=== PATIENT | female | born 1985 | race Caucasian/White ===

== ENCOUNTER 2022-10-25 05:59 | Emergency (ER) | payer OTHER, SELFPAY ==
[2022-10-25 06:02] VITALS: BP 133/88; PULSE 85; RESP 18; TEMP 36.5; O2SAT 100
--- NOTE | 2022-10-25 06:27 | ED.GENADULT ---
HPI - General Adult General Chief complaint: Headache <Salvador Martínez MD - Last Filed: 10/25/22 06:30> Stated complaint: SMALL after LP 2 days ago <Salvador Martínez MD - Last Filed: 10/25/22 06:30> Time Seen by Provider: 10/25/22 06:17 <Salvador Martínez MD - Last Filed: 10/25/22 06:30> History of Present Illness HPI narrative: Patient 37-year-old female who presents the emergency department with chief complaint of headache. Patient reports that she had a lumbar puncture done at [facility] by interventional radiology on Tuesday due to increased intracranial pressure. The patient reports that she is had an MRI that showed that she did not have any masses in her brain and reports that her intracranial pressure was approximately 28 on Tuesday. Patient states she was doing okay after the procedure and then Tuesday night started developing a headache the patient states the headache is gotten very severe she feels somewhat warm over her body and reports that she is had multiple bouts of nausea and vomiting. Patient reports she has prior history of a laminectomy and reports that she called the [facility] nurse line and they recommended that she come to the emergency department. Patient reports no focal neurological deficits denies fever denies nuchal rigidity. <Salvador Martínez MD - Last Filed: 10/25/22 06:30> Related Data Allergies/adverse reactions: Allergies Allergy/AdvReac Type Severity Reaction Status Date / Time Sulfa (Sulfonamide Allergy Mild Rash Verified 10/25/22 06:04 Antibiotics) <Salvador Martínez MD - Last Filed: 10/25/22 06:30> Review of Systems Review of Systems: A 10 system review of systems was completed on the patient and is negative except for what is stated in the HPI. Nursing and ancillary documentation was reviewed. <Salvador Martínez MD - Last Filed: 10/25/22 06:30> Exam Narrative: GENERAL: Well-appearing, well-nourished, patient is holding an emesis bag appears to be in mild pain distress. HEAD: Normocephalic, atraumatic. EYES: PERRLA and EOMI. ENT: Nares clear, no rhinorrhea or epistaxis. Mucous membranes moist. NECK: Supple. No nuchal rigidity CHEST: Clear to auscultation. No respiratory distress. HEART: Regular rate and rhythm. No murmur heard. Normal peripheral pulses. ABDOMEN: Soft, nontender, nondistended, normal active bowel sounds. EXTREMITIES: Normal range of motion. No edema. No weakness in extremities SKIN: Warm, dry, no rash. NEURO: No focal deficits. Alert and oriented x3. GCS 15 no facial droop PSYCH: Normal mood and affect. <Salvador Martínez MD - Last Filed: 10/25/22 06:30> Course Course Emergency Course: Headache resolved. Patient still having some body aches that can be attributed to vomiting. Recommend discharge home with supportive management. Patient comfortable with this plan. Discharge. <Arnie Newton MD - Last Filed: 10/25/22 09:47> Vital Signs Vital signs: Vital Signs Temperature 97.7 F 10/25/22 06:02 Pulse Rate 85 10/25/22 06:02 Respiratory Rate 18 10/25/22 06:02 Blood Pressure 133/88 10/25/22 06:02 Pulse Oximetry 100 10/25/22 06:02 Oxygen Delivery Room Air 10/25/22 06:02 Temperature 97.7 F 10/25/22 06:02 Pulse Rate 85 10/25/22 06:02 Respiratory Rate 18 10/25/22 06:02 Blood Pressure 133/88 10/25/22 06:02 Pulse Oximetry 100 10/25/22 06:02 Oxygen Delivery Room Air 10/25/22 06:02 <Salvador Martínez MD - Last Filed: 10/25/22 06:30> Vital Signs Temperature 97.7 F 10/25/22 06:02 Pulse Rate 85 10/25/22 06:02 Respiratory Rate 18 10/25/22 06:02 Blood Pressure 133/88 10/25/22 06:02 Pulse Oximetry 100 10/25/22 06:02 Oxygen Delivery Room Air 10/25/22 06:02 Temperature 97.7 F 10/25/22 06:02 Pulse Rate 85 10/25/22 06:02 Respiratory Rate 18 10/25/22 06:02 Blood
[2022-10-25] MEDS: PROCHLORPERAZINE EDISYLATE 10 MG/2 ML VIAL IV PUSH (06:30)
[2022-10-25] MEDS: diphenhydrAMINE HCl INJ 50 MG/ML VIAL IV PUSH (06:30)
[2022-10-25] MEDS: SODIUM CHLORIDE 0.9% IV 1,000 ML 999 ML IV CONT (06:31)
== END 2022-10-25 09:57 | disposition home or self-care (01) ==
PROVIDERS: Emergency Provider Emergency Medicine; PCP Family Medicine
DX: G97.1 Other reaction to spinal and lumbar puncture (principal)
CPT/HCPCS: 96361; 96374; 96375; 99284; J0780; J1200; J7030

== ENCOUNTER 2023-06-16 09:51 | Outpatient (CLI) | payer OTHER, SELFPAY ==
--- NOTE | ~2023-06-16 | US_ITS ---
EXAMINATION:US venous doppler LE LT INDICATION:Left leg pain TECHNIQUE: Multiple grayscale, color flow and Doppler images of the left lower extremity deep venous systems were obtained and reviewed. COMPARISON:No prior studies for comparison. FINDINGS: The common femoral, superficial femoral and popliteal veins demonstrate normal respiratory variation, augmentation and compressibility. Color flow is also seen within the posterior tibial, pe roneal, greater saphenous and profunda veins. IMPRESSION: 1: No lower extremity deep venous thrombosis. Reviewed, dictated and finalized at location L.
== END 2023-06-16 09:52 | disposition home or self-care (01) ==
LOC: ANHIMG 10:01
PROVIDERS: PCP Family Medicine; Visit Provider Family Medicine
DX: M79.605 Pain in left leg (principal)
CPT/HCPCS: 93971

== ENCOUNTER 2024-08-31 17:59 | Emergency (ER) | payer OTHER, MEDICAID, SELFPAY ==
--- NOTE | ~2024-08-31 | XR_ITS ---
XR chest 1V portable Ordering provider: Omar Atkins MD History: 39 years Female with . ASTHMA EXACERBATION . Comparison: None. FINDINGS: MEDIASTINUM: The cardiac silhouette is not enlarged. LUNGS: No infiltrates, effusions or pneumothorax. OTHER: No free air under the diaphragm. IMPRESSION: No acute cardiopulmonary pathology. Reviewed, dictated and finalized at location A. [facility]
[2024-08-31 18:02] VITALS: BP 129/84; PULSE 120; RESP 20; TEMP 35.9; O2SAT 99
--- NOTE | 2024-08-31 18:11 | ED.ASTHMA ---
HPI - Asthma General Chief Complaint: Asthma Stated Complaint: SOB Time Seen by Provider: 08/31/24 18:11 Source: patient Related Data Allergies Allergy/AdvReac Type Severity Reaction Status Date / Time Sulfa (Sulfonamide Allergy Mild Rash Verified 08/31/24 18:00 Antibiotics) Course Vital Signs Vital signs: Vital Signs Temperature 35.9 C L 08/31/24 18:02 Pulse Rate 120 H 08/31/24 18:02 Respiratory Rate 20 08/31/24 18:02 Blood Pressure 129/84 08/31/24 18:02 Pulse Oximetry 99 08/31/24 18:02 Oxygen Delivery Room Air 08/31/24 18:02 Temperature 35.9 C L 08/31/24 18:02 Pulse Rate 119 H 08/31/24 20:22 Respiratory Rate 23 H 08/31/24 20:22 Blood Pressure 129/84 08/31/24 18:02 Pulse Oximetry 100 08/31/24 19:20 Oxygen Delivery Room Air 08/31/24 19:20 MDM - Asthma MDM Narrative Medical decision making narrative: PATIENT CAME WITH UPPER RESPIRATORY VIRAL INFECTION SYMPTOMS HISTORY OF ASTHMA, PATIENT REPORTS INCREASED WHEEZING AND SHORTNESS OF BREATH ON ACTIVITY VITAL SIGNS SHOWING HEART RATE OF 120 PHYSICAL EXAMINATION SHOWING SCATTERED WHEEZING AND RHONCHI BILATERALLY CHEST X-RAY SHOWED NO ACUTE ABNORMALITY, PATIENT TESTED NEGATIVE FOR COVID, FLU, RSV. DISCHARGED ON PREDNISONE. DIAGNOSIS UPPER RESPIRATORY VIRAL INFECTION, ASTHMA EXACERBATION Differential Diagnosis Differential diagnosis: Likely other ( ABOVE) Medical Records Attestation: I reviewed the patient's medical records. Lab Data Labs: Lab Results 08/31/24 Range/Units 18:25 Influenza A (RT-PCR) Negative (Negative) Influenza B (RT-PCR) Negative (Negative) RSV (RT-PCR) Negative (Negative) SARS-CoV-2 RNA (RT-PCR) Negative (Negative) Imaging Data Radiologist's impression: Impressions Chest X-Ray 08/31/24 18:26 IMPRESSION: No acute cardiopulmonary pathology. Critical Care Time Critical Care Time Critical Care Time: No Discharge Plan Discharge Clinical Impression: Upper respiratory infection, viral, Asthma with acute exacerbation Patient Disposition: Home, Self-Care Condition: Improved Instructions: Asthma (ED), Upper Respiratory Infection (DC) Additional Instructions: RETURN IF SYMPTOMS ARE WORSENING , CALL YOUR FAMILY PHYSICIAN FOR APPOINTMENT, TAKE TYLENOL NEEDED FOR ACHES AND PAIN, CONTINUE HOME MEDICATIONS. Prescriptions: New prednisone 20 mg tablet 40 mg PO DAILY 5 Days Qty: 10 0RF No Action promethazine 25 mg tablet 25 mg PO Q6H PRN (Reason: nausea and vomiting) Qty: 10 0RF Follow-up/Referrals: Silva,Denzel Grubbs MD [Non-Staff] -
[2024-08-31] MEDS: predniSONE 20 MG TABLET 60 MG PO (18:58)
[2024-08-31] MEDS: ALBUTEROL SULFATE NEB 2.5 MG/3 ML INH 10 MG INHALATION (19:07)
[2024-08-31 19:14] VITALS: PULSE 89; RESP 21
[2024-08-31 19:19] LABS: Influenza A QL RT-PCR Negative (Negative); Influenza B QL RT-PCR Negative (Negative); RSV RNA, RT-PCR Negative (Negative); SARS-CoV-2 RNA PCR Negative (Negative)
[2024-08-31 19:20] VITALS: O2SAT 100
[2024-08-31 20:22] VITALS: PULSE 119; RESP 23
[2024-08-31 21:13] VITALS: BP 151/79; PULSE 102; RESP 14; O2SAT 100
== END 2024-08-31 21:15 | disposition home or self-care (01) ==
PROVIDERS: Emergency Provider Emergency Medicine
DX: J06.9 Acute upper respiratory infection, unspecified (principal); J45.901 Unspecified asthma with (acute) exacerbation; Z20.822 Contact with and (suspected) exposure to COVID-19
CPT/HCPCS: 71045; 87637; 94640; 99283; J7512

== ENCOUNTER 2025-02-27 13:48 | Emergency (ER) | payer OTHER, MEDICAID, SELFPAY ==
--- NOTE | ~2025-02-27 | XR_ITS ---
XR hand LT min 3V Ordering provider: Kenia Stevens APRN History: . L thumb pain . Comparison: None. FINDINGS: BONES: Sclerotic and cystic changes seen in the lunate bone suggestive of AVN. Clinical correlation a dvised. No acute fracture or dislocation. JOINT SPACES: Well maintained. SOFT TISSUES: Unremarkable. IMPRESSION: No acute osseous abnormality left hand. 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 Reviewed, dictated and finalized at location A.
--- NOTE | ~2025-02-27 | XR_ITS ---
CHEST RADIOGRAPH, PA AND LATERAL CLINICAL HISTORY: dizziness; hx asthma . COMPARISON: 05/17/2018 TECHNIQUE: PA and lateral views of the chest. FINDINGS The cardiomediastinal silhouette is unremarkable. The lungs are clear. Visualized osseous structures and soft tissues are unremarkable. IMPRESSION: No focal infiltrate or effusion. Reviewed, dictated and finalized at location A.
--- OUTSIDE RECORDS SUMMARY | 2025-02-27 13:53 | XMS_ITS | Referral Summary ---
Author Organization [facility] Address [address] [place] [address] Care Team Providers Care Oncology Social Worker Name Role Phone Denzel Ascencio MD Primary Care Provider [phone] Allergies Active Allergy Reactions Criticality Noted Date Comments Sulfa (Sulfonamide Antibiotics) Medications topiramate (TOPAMAX) 25 mg tablet Take 25 mg by mouth 2 (two) times a day 10/29/2022 Active rizatriptan (MAXALT) 5 mg tablet Take 1 tab by mouth once at first sign of migraine. May repeat one time after 2 hours if needed. 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), 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 Recurrent major depressive disorder, in partial remission 07/04/2022 PTSD (post-traumatic stress disorder) 07/04/2022 Social History Tobacco Use Types Packs/Day Years Used Date Smoking Tobacco: Former Tobacco Cessation:Counseling Given: Not Answered Personal Safety Answer Date Recorded Getting School Help Needed Not on file 09/14 Comments Unknown Sex and Gender Information Value Date Recorded Sex Assigned at Not on file 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 FOR[facility]LY [facility] Care Teams Oncology Social Worker Relationship Specialty Start Date End Date Denzel Ascencio MD [facility] [place] [address] PCP - General 12/02/17
--- OUTSIDE RECORDS SUMMARY | 2025-02-27 13:54 | XMS_ITS | Data Portability ---
Author Organization [facility] [place], Main Office Address [address] [place] [address] Assessment No assessment recorded. Plan of Treatment Reminders Order Date Submit Date Provider Last Modified By Organization Details Last Modified Time Details Appointments Any 15 2024 10:00A M QUEENIE Hooper Not available Not available Not available Lab drug screen, 14 drugs (detectim ed), urine [email or web address] (Lab), [address] [place], [address], 10/02/2024 08:30:51 test, urine 2023 024 [facility], [address] [place] [address], [id number], 09/24/2024 15:05:31 Referral None recorded. Procedures None recorded. Surgeries None recorded. Imaging None recorded. Medication Orders Depo-Medr ol 80 mg/mL suspensio n for injection [email or web address] [facility], [address] , [place], [place], [id number], 12/11/2024 15:58:04 metoprolo l succinate ER 25 mg tablet,ex tended release 24 hr 2024 025 [facility], [address] , [place], [place], [id number], 12/11/2024 15:40:29 dextroamp hetamine- amphetami ne ER 30 mg 24hr capsule,e xtend release 2024 025 [facility], [address] , [place], [place], [id number], 12/11/2024 15:37:02 Depo-Medr ol 80 mg/mL suspensio n for injection 2023 024 [email or web address] Not available 09/24/2024 15:04:46 Slynd 4 mg (28) tablet 2023 024 [email or web address], [address] , [place], [place], [id number], 09/24/2024 14:59:37 dextroamp hetamine- amphetami ne ER 20 mg 24hr capsule,e xtend release 2023 [email or web address] [place] [address], [address] , [place], [place], [id number], 01/15/2025 16:51:42 dextroamp hetamine- amphetami ne 10 mg tablet 2023 024 [email or web address], [address] , [place], [place], [id number], 09/24/2024 14:59:37 Depo-Medr ol 80 mg/mL suspensio n for injection 2023 024 [email or web address] Not available 06/27/2024 10:09:00 alprazola m 0.5 mg tablet 2023 024 [facility], [address] , [place], [place], [id number], 06/27/2024 10:01:12 Depo-Medr ol 80 mg/mL suspensio n for injection 2023 024 [email or web address] 00 Not available 03/26/2024 16:35:19 albuterol sulfate HFA 90 mcg/actua tion aerosol inhaler 2023 024 [facility], [address] , [place], [place], [id number], 03/26/2024 15:25:19 alprazola m 0.5 mg tablet 2023 024 [facility], [address] , [place], [place], [id number], 03/26/2024 15:25:20 Adderall XR 20 mg capsule,e xtended release 2023 024 [email or web address] 00 [facility], [address] , [place], [place], [id number], 01/15/2025 16:51:42 Depo-Medr ol 80 mg/mL suspensio n for injection 2023 024 [email or web address] Not available 12/14/2023 14:55:46 Vyvanse 50 mg capsule 2023 024 [email or web address] 00 [facility] #[id number], [address] [place], [address], 03/26/2024 15:35:07 Patient TargetsNo targets recorded. Patient Instructions Encounter Date Encounter Id Patient Instructions Last Modified By Organization Details Last Modified Time 06/27/2024 [id number] advised You Tube : [facility] [place] for sleep .... is already on melatonin ,and Ashwaganda . get Braden [employer] , write out thoughts , has a therapist. Dad's cancer worse , new baby . Get book Finding Your strength .... open anywhere , read a sentence or two [email or web address] Not available 06/27/2024 10:22:22 Reason for Referral None Reported. Results Created Date Observation Date Name Description Value Unit Range Abnormal Flag Note LastModifiedBy Organization Detail LastModifiedTime 09/24/20 24 09/24/2024 pregn brandi test, urine HCG negati ve Not Available [facility] [address] [facility], [place], [address], 09/24/2024 14:58:36 06/12/20 24 06/12/2024 XR, chest , 2 view No observ ation record ed. [email or web address] [facility] [address] [place], [address], 06/13/2024 08:35:44 08/31/20 24 08/31/2024 XR, chest , 2 view No observ ation record ed. [email or web address] [address], [place], [address], 10/01/2024 16:51:57 Result Notes None recorded. Problems Name Problem SNOMED Code Status Onset Date Resolution Date Notes Provider Name and Address Organization Details Recorded Time Migraine 59030499 Active 2022 Not Available [facility] 4 18:39:15 COVID-19 791083517 Active 2022 Not Available [facility] 4 18:39:15 Pain in left lower limb 867605458 Active 2022 Not Available [facility] 4 18:39:15 Mixed anxiety and depressive disorder 840808242 Active 2022 Not Available [facility] 4 18:39:14 Attention deficit hyperactivity disorder, predominantly inattentive type 75111284 Active 2022 Not Available [facility] 4 18:39:15 Seasonal allergy 775966365 Active 2023 Sangita Lyons RN [facility], [employer] [facility] 4 16:16:26 Adult health examination Active 2023 QUEENIE Hooper [address] [facility] [address], [place], [address] , [facility] [employer] 4 09:52:50 Acne 18702340 Active Not Available [facility] 4 18:39:14 Acute sinusitis 81899439 Active Not Available [facility] 4 18:39:14 Asthma 145993717 Active Not Available [facility] 4 18:39:14 Excessive weight gain 409877252 Active Not Available [facility] 4 18:39:14 Undifferentia corrina attention deficit disorder 77603264 Active Not Available [facility] 4 18:39:14 Seasonal allergic conjunctiviti s 465963017 Active Not Available [facility] 4 18:39:14 Headache 41286472 Active Not Available [facility] 4 18:39:14 Low back pain 781119736 Active Not Available [facility] 4 18:39:14 Eruption caused by drug 90796139 Active Not Available [facility] 4 18:39:15 Pain in pelvis 13671331 Active Not Available [facility] 4 18:39:15 Vaginitis 78894575 Active Not Available [facility] 4 18:39:15 Vitamin D deficiency 59553210 Active Not Available [facility] 4 18:39:15 Depressive disorder 94612993 Active Not Available [facility] 4 18:39:15 Environmental allergy 735936103 Active Not Available [facility] 4 18:39:15 Anxiety 53376290 Active Not Available [facility] 4 18:39:15 Allergic rhinitis 92090889 Active Not Available [facility] 4 18:39:15 Dyspareunia 18756767 Active Not Available [facility] 4 18:39:15 Cyst of ovary 35206600 Active Not Available [facility] 4 18:39:15 Contraception care Active 2023 QUEENIE Hooper [address], [place], [address] , [place] [facility] 4 14:51:04 Tachycardia 0721789 Active 2024 QUEENIE Hooper [address], [place], [address] , [place] [facility] 5 15:38:52 Notes:Some problems listed i n Documents: #[id number], #[id number], #[id number], #[id number] could not be added to this patient's chart. Please review these documents and add these problems to the patient's chart manually as needed. Problem Notes None recorded. Medical Equipment None Reported. Allergies Allergen ID Allergen Name Allergen Category Reaction Reaction Severity Criticality Documentation Date Start Date Code Code System Note Provider Name and Address Organization Details Recorded Time 6293 Substance with sulfonami de structure and antibacte rial mechanism of action (substanc e) medicatio n Not available Not available Not available 12/01/2022 20877 8003 SNOMED Not Available [facility] 3 03:35:24 Medications Name Sig Start Date Stop Date Status Note LastModified by Organization Details LastModified Time cyclobenz aprine 10 mg tablet TAKE 1 TABLET BY MOUTH THREE TIMES A DAY 12/13 completed Not Available Not Available Not Available amoxicill in 500 mg capsule 12/14 completed Not Available Not Available Not Available fluconazo le 100 mg tablet TAKE 1 TABLET BY MOUTH EVERY DAY FOR 14 DAYS active Not Available Not Available No t Available methocarb charlie 500 mg tablet TAKE 1-2 TABLETS BY MOUTH 4 TIMES A DAY NEEDED active Not Available Not Available No t Available Qvar 80 mcg/actua tion Metered Aerosol oral inhaler Inhale 2 puffs twice a day by inhalati on route. active Not Available Not Available No t Available prednison e 10 mg tablet 4 tabs daily x 3 days 3tabs daily x 3 days 2 tabs daily x 3 days 2 tabs daily x 3 days 1 tab daily x 3 days and then d/c active Not Available Not Available No t Available albuterol sulfate 2.5 mg/3 mL (0.083 %) solution for nebulizat ion INHALE 1 VIAL VIA NEBULIZE R 4 TIMES A DAY active Not Available Not Available No t Available azithromy caitlyn 250 mg tablet TAKE 2 TABLETS BY MOUTH TODAY, THEN TAKE 1 TABLET DAILY FOR 4 DAYS 10/05 completed Not Available Not Available Not Available diltiazem CD 180 mg capsule,e xtended release 24 hr TAKE 1 CAPSULE BY MOUTH EVERY DAY 06/27 completed Not Available Not Available Not Available fluconazo le 150 mg tablet Take 1 tablet every day by oral route. 11/02 completed Not Available Not Available Not Available sumatript an 100 mg tablet TAKE MEDICATI ON AT THE ONSET OF MIGRAINE , MAY REPEAT IN 2 HOURS active Not Available Not Available No t Available hydrocodo ne 5 mg-acetam inophen 325 mg tablet TAKE 1 TABLET BY MOUTH EVERY 6 HOURS NEEDED FOR PAIN 02/28 completed Not Available Not Available Not Available ondansetr on HCl 8 mg tablet TAKE 1 TABLET BY MOUTH EVERY 8 HOURS NEEDED 12/13 completed Not Available Not Available Not Available minocycli ne 100 mg capsule TAKE 1 CAPSULE BY MOUTH EVERY 12 HOURS 12/13 completed Not Available Not Available Not Available metronida zole 0.75 % (37.5 mg/5 gram) vaginal gel INSERT 1 APPLICAT ORFUL VAGINALL Y AT BEDTIME FOR 5 DAYS 10/05 completed Not Available Not Available Not Available ondansetr on HCl 4 mg tablet TAKE 1 TO 2 TABLETS BY MOUTH EVERY DAY 10/22 completed Not Available Not Available Not Available prednison e 20 mg tablet TAKE 2 TABLETS ORAL ROUTE ONCE DAILY FOR 5 DAYS TAKE WITH FOOD 09/24 completed Not Available Not Available Not Available dextroamp hetamine- amphetami ne 10 mg tablet 1 tab po at 3 pm as needed 2024 active Not Available Not Available Not Avai lable prednison e 5 mg tablet active Not Available Not Available Not Available topiramat e 25 mg tablet TAKE 1 (ONE) TABLET BY MOUTH 2 TIMES DAILY active Not Available Not Available No t Available fexofenad ine 180 mg tablet TAKE 1 TABLET BY MOUTH EVERY DAY active Not Available Not Available No t Available ciproflox acin 500 mg tablet TAKE 1 TABLET BY MOUTH EVERY 12 HOURS FOR 5 DAYS 12/11 completed Not Available Not Available Not Available Tamiflu 75 mg capsule TAKE ONE CAPSULE BY MOUTH TWICE A DAY active Not Available Not Available No t Available sulfameth oxazole 800 mg-trimet hoprim 160 mg tablet active Not Available Not Available Not Available tramadol 50 mg tablet TAKE 1 TO 2 TABLETS BY MOUTH EVERY 6 HOURS NEEDED FOR PAIN 12/13 completed Not Available Not Available Not Available amoxicill in 500 mg tablet TAKE 1 TABLET BY MOUTH EVERY 6 HOURS. 02/09 /2022 completed Not Available Not Available Not Available Depo-Medr ol 80 mg/mL suspensio n for injection Take 1 mL every day by injectio n route for 1 day. 2024 active Not Available Not Available Not Avai lable ketorolac 10 mg tablet TAKE 1 TABLET BY MOUTH 4 TIMES A DAY NEEDED FOR PAIN 12/13 completed Not Available Not Available Not Available oxycodone -acetamin ophen 5 mg-325 mg tablet active Not Available Not Available Not Available alprazola m 0.5 mg tablet TAKE 1 TABLET BY MOUTH TWO TIMES A DAY as needed active Not Available Not Available No t Available amoxicill in 875 mg tablet TAKE 1 TABLET BY MOUTH TWICE A DAY FOR 10 DAYS, THEN ONCE DAILY THEREAFT ER 12/13 completed Not Available Not Available Not Available famotidin e 20 mg tablet TAKE 1 TABLET BY MOUTH EVERY DAY 01/05 completed Not Available Not Available Not Available dextroamp hetamine- amphetami ne ER 20 mg 24hr capsule,e xtend release Take 1 Capsule (20 mg) by mouth daily 01/15 completed increase d to 30 mg ER Not Available Not Available Not Available baclofen 10 mg tablet TAKE 1/2 (HALF) TABLET BY MOUTH WITH FOOD OR MILK TWICE DAILY 10/05 completed Not Available Not Available Not Available benzonata te 100 mg capsule 06/27 completed Not Available Not Available Not Available dexametha sone 4 mg tablet active Not Available Not Available Not Available prednison e 50 mg tablet TAKE 1 TABLET WITH FOOD ONCE DAILY FOR 5 DAYS NEEDED FOR ASTHMA EXACERBA TION ( NOT ENROLLED ) 02/25 completed Not Available Not Available Not Available promethaz ine 25 mg tablet TAKE 1 TABLET BY MOUTH EVERY 6 HOURS NEEDED FOR NAUSEA AND VOMITING 12/13 completed Not Available Not Available Not Available Advair Diskus 250 mcg-50 mcg/dose powder for inhalatio n INHALE 1 PUFF BY MOUTH TWICE A DAY active Not Available Not Available No t Available Advair Diskus 500 mcg-50 mcg/dose powder for inhalatio n INHALE 1 PUFF TWICE A DAY BY INHALATI ON ROUTE. active Not Available Not Available No t Available docusate sodium 100 mg capsule TAKE 1 CAPSULE BY MOUTH TWICE A DAY 12/11 completed Not Available Not Available Not Available gabapenti n 300 mg capsule TAKE 1 CAPSULE BY MOUTH THREE TIMES A DAY 12/13 completed Not Available Not Available Not Available monteluka st 10 mg tablet TAKE 1 TABLET BY MOUTH EVERY DAY active Not Available Not Available No t Available codeine 10 mg-guaife nesin 100 mg/5 mL oral liquid TAKE 10ML BY MOUTH EVERY 6 HOURS NEEDED FOR COUGH 10/05 completed Not Available Not Available Not Available mupirocin 2 % topical ointment APPLY A SMALL AMOUNT TO THE AFFECTED AREA BY TOPICAL ROUTE 3 TIMES PER DAY 12/13 completed Not Available Not Available Not Available digoxin 125 mcg (0.125 mg) tablet TAKE 1 TABLET BY MOUTH ONCE A DAY FOR 5 DAYS, M-F 06/27 completed Not Available Not Available Not Available metoprolo l succinate ER 25 mg tablet,ex tended release 24 hr Take 1 tablet every day by oral route in the morning. 2024 active Not Available Not Available Not Avai lable ergocalci ferol (vitamin D2) 1,250 mcg (50,000 unit) capsule TAKE 2 CAPSULE( S) EVERY WEEK BY ORAL ROUTE FOR 1 MONTH THAN 1 CAP THEREAFT ER WEEKLY active Not Available Not Available No t Available ibuprofen 600 mg tablet TAKE 1 TABLET ORAL ROUTE EVERY 6 HOURS NEEDED TAKE WITH FOOD active Not Available Not Available No t Available methylpre dnisolone 4 mg tablets in a dose pack TAKE 6 TABLETS ON DAY 1 DIRECTED ON PACKAGE AND DECREASE BY 1 TAB EACH DAY FOR A TOTAL OF 6 DAYS 12/11 completed Not Available Not Available Not Available albuterol sulfate HFA 90 mcg/actua tion aerosol inhaler 2 puffs 3 times daily as needed active Not Available Not Available No t Available diltiazem 30 mg tablet TAKE 1/2 TABLET BY MOUTH TWICE DAILY 09/09 completed Not Available Not Available Not Available dextroamp hetamine- amphetami ne ER 30 mg 24hr capsule,e xtend release TAKE 1 CAPSULE BY MOUTH EVERY DAY 2024 active Not Available Not Available Not Avai lable ondansetr on 4 mg disintegr ating tablet active Not Available Not Available Not Available diltiazem 60 mg tablet TAKE 1 TABLET BY MOUTH TWICE A DAY 09/09 completed Not Available Not Available Not Available fluticaso ne propionat e 50 mcg/actua tion nasal spray,trinity pension SPRAY 2 SPRAYS INTO EACH NOSTRIL EVERY DAY active Not Available Not Available No t Available sertralin e 50 mg tablet TAKE 1 TABLET BY MOUTH EVERY DAY 11/11 completed Not Available Not Available Not Available ipratropi um bromide 0.02 % solution for inhalatio n INHALE CONTENTS OF 1 VIAL VIA NEBULIZE R EVERY 6 HOURS NEEDED FOR SHORTNES S OF BREATH active Not Available Not Available No t Available amoxicill in 875 mg-potass ium clavulana te 125 mg tablet TAKE 1 TABLET BY MOUTH EVERY 12 HOURS FOR 10 DAYS 10/26 completed Not Available Not Available Not Available rizatript an 5 mg tablet TAKE 1 TAB BY MOUTH ONCE AT FIRST SIGN OF MIGRAINE . MAY REPEAT ONE TIME AFTER 2 HOURS IF NEEDED. 03/26 completed Not Available Not Available Not Available hydroxyzi ne pamoate 25 mg capsule TAKE 1 CAPSULE BY MOUTH EVERY DAY 03/26 completed Not Available Not Available Not Available NuvaRing 0.12 mg-0.015 mg/24 hr vaginal Insert 1 vaginal ring every month by vaginal route. active Not Available Not Available No t Available azithromy caitlyn 500 mg tablet TAKE 2 TABLETS BY MOUTH AT ONE TIME NOW 10/05 completed Not Available Not Available Not Available metaxalon e 800 mg tablet active Not Available Not Available Not Available atomoxeti ne 40 mg capsule TAKE 1 CAPSULE BY MOUTH EVERY DAY 04/08 completed Not Available Not Available Not Available cyclobenz aprine 5 mg tablet 11/02 completed Not Available Not Available Not Available () 1.5 mg-30 mcg tablet Take 1 tablet every day by oral route. active Not Available Not Available No t Available bupropion HCl XL 300 mg 24 hr tablet, extended release TAKE 1 TABLET (300 MG TOTAL) BY MOUTH EVERY MORNING. 07/22 completed Not Available Not Available Not Available bupropion HCl XL 150 mg 24 hr tablet, extended release TAKE 1 TABLET BY MOUTH EVERY DAY 12/13 completed stopped in Sep 24 Not Available Not Available Not Available 10/22 (28) 1 mg-20 mcg (21)/75 mg (7) tablet TAKE 1 TABLET BY MOUTH EVERY DAY active Not Available Not Available No t Available () 1.5 mg-30 mcg (21)/75 mg (7) tablet TAKE 1 TABLET BY MOUTH DAILY 12/11 completed Not Available Not Available Not Available chlorhexi dine gluconate 0.12 % mouthwash 12/13 completed Not Available Not Available Not Available biotin 2013 active Not Available Not Available Not Avai lable multivita min 2013 active Not Available Not Available Not Avai lable Zegerid 2013 active Not Available Not Available Not Avai lable aripipraz ole 2 mg tablet TAKE 1 TABLET BY MOUTH EVERY DAY active Not Available Not Available No t Available Symbicort 160 mcg-4.5 mcg/actua tion HFA aerosol inhaler Inhale 2 puffs twice a day by inhalati on route. 2014 active [facility][id number] Not Available Not Available Not Available Vyvanse 50 mg capsule TAKE 1 CAPSULE BY MOUTH EVERY DAY IN THE MORNING 03/26 completed not covered , switched to adderall 20 mg Not Available Not Available Not Available Vyvanse 40 mg capsule TAKE 1 CAPSULE BY MOUTH EVERY DAY 12/13 completed Not Available Not Available Not Available Dulera 200 mcg-5 mcg/actua tion HFA aerosol inhaler Inhale 2 puffs twice a day by inhalati on route. active Not Available Not Available No t Available Lo Loestrin Fe 1 mg-10 mcg (24)/10 mcg (2) tablet Take 1 tablet every day by oral route for 30 days. active Not Available Not Available No t Available Asmanex HFA 200 mcg/actua tion aerosol inhaler Inhale 2 puffs twice a day by inhalati on route. active Not Available Not Available No t Available Breo Ellipta 200 mcg-25 mcg/dose powder for inhalatio n INHALE 1 PUFF BY MOUTH EVERY DAY 10/22 completed Not Available Not Available Not Available Qvar RediHaler 80 mcg/actua tion HFA breath activated aerosol Inhale 2 puffs twice a day by inhalati on route. active Not Available Not Available No t Available Slynd 4 mg (28) tablet Take 1 tablet every day by oral route for 30 days. active Not Available Not Available No t Available Lagevrio 200 mg capsule (EUA) active Not Available Not Available Not Available Vitals Date Recorded Body height Body mass index (BMI) Body weight Body temperature Heart rate Respiratory rate Oxygen saturation Oxygen saturation in Arterial blood by Pulse oximetry Systolic blood pressure Diastolic blood pressure Provider Name and Address Organization Details Last Updated DateTime 5 157.48 cm 36.4 kg/m2 22036.8 8 g 97.8 [degF] 122 /min 15.98 /min 98 % 98 % 112 mm[Hg] 64 mm[Hg] PAULINA Tai [facility] [employer] [facility] 5 15:23:22 Date Recorded Body height Body mass index (BMI) Body weight Body temperature Heart rate Oxygen saturation Oxygen saturation in Arterial blood by Pulse oximetry Respiratory rate Systolic blood pressure Diastolic blood pressure Provider Name and Address Organization Details Last Updated DateTime 4 157.48 cm 35.3 kg/m2 58218.3 3 g 98.5 [degF] 120 /min 99 % 99 % 16 /min 110 mm[Hg] 74 mm[Hg] Jami Reed RN [facility] [employer] [facility] 4 14:07:56 Date Recorded Body height Body mass index (BMI) Body weight Body temperature Heart rate Oxygen saturation Oxygen saturation in Arterial blood by Pulse oximetry Respiratory rate Systolic blood pressure Diastolic blood pressure Provider Name and Address Organization Details Last Updated DateTime 4 157.48 cm 35.5 kg/m2 93839.9 2 g 97.9 [degF] 112 /min 99 % 99 % 16 /min 140 mm[Hg] 90 mm[Hg] PAULINA Hartmann [facility] [employer] [facility] 4 15:14:25 Date Recorded Body height Body mass index (BMI) Body weight Body temperature Heart rate Respiratory rate Oxygen saturation Oxygen saturation in Arterial blood by Pulse oximetry Systolic blood pressure Diastolic blood pressure Provider Name and Address Organization Details Last Updated DateTime 4 157.48 cm 36 kg/m2 36427.7 g 98.3 [degF] 125 /min 16 /min 99 % 99 % 120 mm[Hg] 82 mm[Hg] PAULINA Hartmann [facility] [employer] [facility] 4 09:38:27 Date Recorded Body height Body mass index (BMI) Body weight Body temperature Heart rate Oxygen saturation Oxygen saturation in Arterial blood by Pulse oximetry Systolic blood pressure Diastolic blood pressure Provider Name and Address Organization Details Last Updated DateTime 4 157.48 cm 36.8 kg/m2 29309.0 7 g 98.1 [degF] 110 /min 100 % 100 % 130 mm[Hg] 90 mm[Hg] Sangita Lyons RN [place] [facility] 4 14:28:37 Social History Question Answer Notes LastModified by [employer] Details LastModified Time Tobacco Smoking Status Former Smoker Not Available [facility] 12/01/2022 02:56:55 In The 14 Days Before Symptom Onset, Have You Had Close Contact With A Laboratory-confirm ed COVID-19 While That Case Was Ill? No [id number] Information not available 12/01/2022 In The 14 Days Before Symptom Onset, Have You Had Close Contact With A Person Who Is Under Investigation For COVID-19 While That Person Was Ill? No [id number] Information not available 12/01/2022 At What Age Did You Start Smoking Tobacco? 17 [id number] Information not available 12/01/2022 How Much Tobacco Do You Smoke? 0.5 PPD [id number] Information not available 12/01/2022 How Many Years Have You Smoked Tobacco? 10 [id number] Information not available 12/01/2022 Sex: Unknown Functional Status Question Answer Note LastModified by [employer] Details LastModified Time What is your level of alcohol consumption? Occasional [id number] Information not available 12/01/2022 Mental Status None recorded. Family History Relationship Description Onset Age of this Age Resolved Age Notes LastModified by Organization Details LastModified Time Paternal Aunt Family history of malignant neoplasm Not available 12/11 15:13:54 Paternal Aunt Hereditary factor V deficiency disease [email or web address] Not available 12/11 15:13:54 Mother Cyst of ovary [email or web address] Not available 12/11 15:13:54 Maternal Grandmother Heart disease [id number] Not available 12/01/2022 03:18:53 Father Family history of malignant neoplasm [email or web address] Not available 12/11 15:13:54 Father Degeneration of intervertebr al disc [email or web address] Not available 12/11 15:13:54 Father Chronic obstructive pulmonary disease [email or web address] Not available 12/11 15:13:54 Paternal Grandmother Asthma [email or web address] [id number] Not available 12/01/2022 03:18:53 Paternal Grandfather Hereditary factor V deficiency disease [email or web address] Not available 12/11 15:13:54 Medical History No medical history recorded. Gynecological HistoryNo gynecological history recorded. Obstetrics History GPAL:G 0 P 0 0 0 0 Immunizations Vaccine Type Date Status Note Provider Nam e and Address Organization Details Recorded Time SARS-COV-2 (COVID-19) vaccine, UNSPECIFIED 3 completed Not [facility] 18:39:15 Past Encounters Encounter ID Performer Location Encounter Start Date Encounter Closed Date Diagnosis/Indication Diagnosis SNOMED-CT Code Diagnosis ICD10 Code Diagnosis Note [id number] Denzel Ascencio MD [facility] Augusto alvarez [facility] [place] [address] [address] 01/14/2021 00:00:00 01/14/2021 21:33:33 [id number] Denzel Ascencio MD [facility] Augusto alvarez [facility] [place] [address] [address] 02/25/2021 00:00:00 02/26/2021 05:27:22 [id number] Denzel Ascencio MD [facility] Augusto alvarez [facility] [place] [address] [address] 04/08/2021 00:00:00 04/08/2021 22:02:40 [id number] Denzel Ascencio MD [facility] Augusto alvarez [facility] [place] [address] [address] 09/09/2021 00:00:00 09/09/2021 20:39:39 [id number] Denzel Ascencio MD [facility] Augusto alvarez [facility] [place] [address] [address] 11/11/2021 00:00:00 11/11/2021 19:14:00 [id number] Denzel Ascencio MD [facility] Augusto alvarez [address] [place] [address] [place] [address] 12/14/2021 00:00:00 12/14/2021 20:55:03 [id number] Denzel Ascencio MD [facility] Augusto alvarez [address] [place] [address] [place] [address] 02/23/2022 00:00:00 02/24/2022 08:28:41 [id number] Denzel Ascencio MD [facility] Augusto alvarez [address] [place] [address] [place] [address] 03/25/2022 00:00:00 03/25/2022 22:05:46 [id number] Denzel Ascencio MD [facility] Augusto alvarez [address] [place] [address] [place] [address] 04/08/2022 00:00:00 04/08/2022 18:59:25 [id number] Denzel Ascencio MD [facility] Augusto alvarez [address] [place] [address] [place] [address] 12/13/2022 14:34:09 12/13/2022 15:28:52 Allergic rhinitis 81261124 J30.9 Asthma 207410376 J45.90 9 Acne 61971792 L70.9 Migraine 42419925 G43.90 9 Continue topiramate . 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.0 [id number] Denzel Ascencio MD [facility] [place] [address] [facility] [place] [address] 09/28/2023 10:52:35 10/17/2023 11:12:32 Allergic rhinitis 31999790 J30.9 [id number] Denzel Ascencio MD [facility] [place] [address] [facility] [place] [address] 12/14/2023 13:55:18 12/14/2023 14:50:40 Attention deficit hyperactivity disorder, predominantly inattentive type 68904530 F90.0 Allergic rhinitis 742817 04 J30.9 Asthma 699120107 J45.90 9 Anxiety 36869875 F41.9 Depressive disorder 3548 9007 F32.9 Environmental allergy 42 7405223 T78.49XD Vitamin D deficiency 347 86464 E55.9 [id number] Oleg Dumont MD [facility] [place] [address] [facility] [place] [address] 03/26/2024 15:07:48 03/26/2024 15:34:33 Asthma 459264207 J45.909 Anxiety 70600279 F41.9 Attention deficit hyperactivity disorder, predominantly inattentive type 79933904 F90.0 Seasonal allergy 9367753 04 J30.2 Allergic rhinitis 238874 04 J30.9 Depressive disorder 3548 9007 F32.9 Low back pain 930649607 M54.50 Migraine 16852401 G43.90 9 Vitamin D deficiency 347 11793 E55.9 [id number] Oleg Dumont MD [facility] [place] [address] [facility] [place] [address] 06/27/2024 09:28:34 06/27/2024 10:38:22 Adult health examination 328705012 Z00.00 Allergic rhinitis 440033 04 J30.9 Anxiety 25745162 F41.9 Attention deficit hyperactivity disorder, predominantly inattentive type 95326009 F90.0 Depressive disorder 3548 9007 F32.9 Environmental allergy 42 7713178 T78.49XD Mixed anxi ety and depressive disorder 358012447 F41.8 Vitamin D deficiency 347 20568 E55.9 Asthma 775870320 J45.90 9 Low back pain 620179181 M54.50 [id number] Oleg Dumont MD [address] [address] 09/24/2024 14:15:16 09/24/2024 15:45:11 Attention deficit hyperactivity disorder, predominantly inattentive type 81799887 F90.0 [facility] [address] 5005 Z30.40 Allergic rhinitis 012178 04 J30.9 Long-term drug therapy 063936599 Z79.891 Anxiety 98992770 F41.9 Depressive disorder 3548 9007 F32.9 Vitamin D deficiency 347 07617 E55.9 [id number] Oleg Dumont MD [address] [address] 12/11/2024 15:11:52 12/25/2024 08:16:08 Allergic rhinitis 81107557 J30.9 Attention deficit hyperactivity disorder, predominantly inattentive type 04179655 F90.0 Tachycardia 5144042 R00. 0 Health Concerns Section Related Observation LastModified by Organization Detai ls LastModified Time None Recorded Concern Status LastModified by Organization Details LastModified Time None Recorded Advance Directives Directive None Recorded Payers Encounter Date Sequence Insurance Name Policy Number Policy Espinoza Covered Member ID Espinoza Member ID Guarantor Name 12/14/2023 1 [facility] ON OR AFTER 04/02/21 (MEDICAID REPLACEMENT - HMO) Qiana Bower [id number] Qiana Bower 03/26/2024 1 [facility] (O) Qiana Bower [id number] Qiana Bower 06/27/2024 1 [facility] Qiana Shepherd Boccaleoni [id number] Qiana Shepherd Boccaleoni 09/24/2024 1 [facility]) Qiana Shepherd Boccaleoni [id number] Qiana Shepherd Boccaleoni 12/11/2024 1 [facility]) Qiana Shepherd Boccaleoni [id number] Qiana Shepherd Boccaleoni Notes Date Note Type Note Provider Name and Address Organization Details Recorded Time 12/14/2023 text/html allergies have flared , trees pollenating QUEENIE Hooper [address], [place], [address], [employer] 12/24/2023 11:29:37 03/26/2024 text/html allergies acting up , wants a depomedrol shot QUEENIE Hooper [address], [place], [address], [employer] 03/27/2024 10:19:20 06/27/2024 text/html sneezing , itchy , watery eyes . wants a shot QUEENIE Hooper [address], [place], [address], [employer] 07/14/2024 10:24:35 09/24/2024 text/html no changes QUEENIE Hooper [address], [place], [address], [employer] 10/07/2024 16:06:40 12/11/2024 text/html allergies acting up QUEENIE Hooper [address], [place], [address], [employer] 12/22/2024 10:15:31 OBGyn Episode No OBEpisode recorded.
--- OUTSIDE RECORDS SUMMARY | 2025-02-27 13:54 | XMS_ITS | Continuity of Care Document ---
Author Organization [facility] Address [address] [place] [address] Phone Care Team Providers Care Hadoop Analyst Name Role Phone Thanh Cote MD Unavailable Unavailable Advance Directives Directive Yes / No Effective Date File Name No Information Encounters Encounter Description Practice Location Reason(s) For Visit Diagnoses Date Provider Providers Copied on Encounter [facility], [address], [place], [place], [address], tel:[phone] [facility] No Information Kera Law. [address], [place], [place], [address], [place]. tel:[phone] Referring Provider: [address], [place], [address]. tel:[phone] Family History Family Member Type Diagnosis Age At Onset No Information Payers Payer name Insurance type Covered republican ID Authoriza tieladio(s) GINGER ZIEGLER [id number] Social History Type Description Quantity Date Captured Comments Sex Female Smoking Status No Information Chief Complaint And Reason For Visit No Information Reason For Referral Reason For Referral No Information History Of Present Illness Encounter Date Complaint History Of Prese nt Illness No Information Functional Status Date Functional Assessmen t No Information Instructions Date Instruction Additional Infor mation No Information Assessments Type Assessment Date No Information Patient Care Teams Name Effective Dates (start - stop) Status Members No Information
--- OUTSIDE RECORDS SUMMARY | 2025-02-27 13:54 | XMS_ITS | Clinical Summary ---
Author Organization [facility] Address [address] [facility] [place] [address] Care Team Providers Care Roving Department Supervisor Name Role Phone Unavailable Primary Care Provider Unavailabl e Medications ALPRAZolam (XANAX) 0.5 mg tablet TAKE 1 TABLET BY MOUTH THREE TIMES A DAY 90 Tablet 03/27/2024 2:30 PM CDT 4 Active benzonatate (Tessalon Perles) 100 mg capsule Take 1 Capsule (100 mg) by mouth every 8 hours as needed. 15 Capsule 06/12/2024 6:40 PM CDT 4 Active molnupiravir 200 mg capsule Take 4 capsules by mouth every 12 hours for 5 days 40 Capsule 06/12/2024 6:40 PM CDT 4 Active ALPRAZolam (XANAX) 0.5 mg tablet Take 1 Tablet (0.5 mg) by mouth 2 times daily as needed. 60 Tablet 06/29/2024 2:59 PM CDT 4 Active albuterol sulfate HFA 90 mcg/actuation aerosol inhaler INHALE 2 PUFFS BY MOUTH EVERY 4 HOURS NEEDED 6.7 Gram 5 02/26/2025 2:35 PM CDT 4 Active albuterol sulfate HFA 90 mcg/actuation aerosol inhaler INHALE 2 PUFFS BY MOUTH EVERY 4 HOURS NEEDED 6.7 Gram 5 11/20/2024 6:22 PM MOVER HELPER 4 Active albuterol sulfate HFA 90 mcg/actuation aerosol inhaler Take 2 Puffs by inhalation 3 times daily as needed. 6.7 Gram 6 4 Active drospirenone, contraceptive, (Slynd) 4 mg (28) Tablet Take 1 Tablet (4 mg) by mouth daily. 30 Tablet 6 12/08/2024 1:16 PM MOVER HELPER 4 03/11/20 25 Active amphetamine-de xtroamphetamin e (ADDERALL XR) 20 mg Extended Release 24 hour capsule Take 1 Capsule (20 mg) by mouth daily 30 Capsule 10/29/2024 6:26 PM MOVER HELPER Active metoprolol succinate (TOPROL XL) 25 mg Extended Release 24 hour tablet Take 1 Tablet (25 mg) by mouth daily in the morning. 30 Tablet 6 12/11/2024 5:26 PM CDT Active dextroamphetam ine-amphetamin e (ADDERALL) 10 mg tablet Take 1 Tablet (10 mg) by mouth daily at 3:00 pm as needed. Max Daily Amount: 10 mg 30 Tablet 02/15/2025 4:04 PM CDT Active amphetamine-de xtroamphetamin e (ADDERALL XR) 30 mg Extended Release 24 hour capsule Take 1 Capsule (30 mg) by mouth daily. 30 Capsule 02/15/2025 4:04 PM CDT Active dextroamphetam ine-amphetamin e (ADDERALL) 10 mg tablet Take 1 Tablet (10 mg) by mouth daily at 3:00 pm as needed. Max Daily Amount: 10 mg 30 Tablet 01/15/2025 6:15 PM CDT 5 02/15/20 25 Discontinu ed(Reorder ) amphetamine-de xtroamphetamin e (ADDERALL XR) 30 mg Extended Release 24 hour capsule Take 1 Capsule (30 mg) by mouth daily. 30 Capsule 01/15/2025 6:15 PM CDT 5 02/15/20 25 Discontinu ed(Reorder ) Encounters Date Type Department Care Team Description 02/21/2025 External Device Data [facility] ABSTRACTION Provider, Abstract 02/20/2025 External Device Data [facility] ABSTRACTION Provider, Abstract 02/19/2025 External Device Data [facility]STRACTION Provider, Abstract 01/15/2025 External Device Data [facility] Provider, Abstract 12/19/2024 External Device Data [facility] Provider, Abstract 12/19/2024 External Device Data [facility]CTION Provider, Abstract 12/08/2024 External Device Data [facility]CTION Provider, Abstract 12/07/2024 External Device Data [facility] ABSTRACTION Provider, Abstract 12/04/2024 External Device Data [facility] ABSTRACTION Provider, Abstract from Last 3 Months Social History Tobacco Use Types Packs/Day Years Used Date Smoking Tobacco: Never Assessed Comments Unknown Sex and Gender Information Value Date Recorded Sex Assigned at Not on file Legal Sex Female 2:26 PM CDT Gender Identity Not on file Sexual Orientation Not on file Plan of Treatment Health Maintenance Due Date Last Done Comments DTAP/TDAP/TD VACCINES (1 - Tdap) 2006 HEPATITIS B VACCINES (1 of 3 - 19+ 3-dose series) 2006 HPV/Cotest (21-29) 2008 CERVICAL CANCER SCREENING 2017 HPV/Cotest (30-65) 2017 PAP SMEAR 2017 INFLUENZA VACCINE (#1) 2024 HPV VACCINES Aged Out No longer eligi ble based on patient's age to complete this topic Insurance [employer] Member Subscriber Plan / Payer (Ef fective 2024-Present) Name:Qiana Bower Relation to Subscriber:Self Name:Qiana Bower Payer ID:Not on file Group ID:[id number] Type:RX Commercial Address: [address]
--- OUTSIDE RECORDS SUMMARY | 2025-02-27 13:54 | XMS_ITS | Encounter Summary ---
Author Organization [facility] Address [address] [place] [address] Care Team Providers Care Securities Consultant Name Role Phone Kendra Morse DO Primary Care Provider Reason for Visit * Reason Onset Date Comments MEDICATION REFILL 11/14/2023 Encounter Details Date Type Department Care Team (Late st Contact Info) Description 11/14/2023 Refill [facility] - Pulmonology [address] [place] [address], [place] [address] Beny Stokes MD [address] [place] [address] OF PULMONARY/[place] [address] MEDICATION REFILL Social History Tobacco Use Types Packs/Day Years Used Date Smoking Tobacco: Former Cigarettes 1 7 0 10/03/2004 - 10/03/2011 Smokeless Tobacco: Former Alcohol Use Standard Drinks/Week Comments Yes 0 (1 standard drink = 0.6 oz pur e alcohol) AUDIT-C Answer Date Recorded Q1: How often do you have a drink containing alc ohol? 2-4 times a month 10/22/2022 Average Number of Drinks Not on file 023 Q3: How often do you have si x or more drinks on one occasion? 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
--- OUTSIDE RECORDS SUMMARY | 2025-02-27 13:54 | XMS_ITS | Clinical Summary ---
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 Gender Identity Not on file Sexual Orientation Not on file Obstetrics History Last Filed Vital Signs Vital Sign Reading [...] 06/29/2023 11:10 AM CDT Plan of Treatment Health Maintenance Due Date Last Done Comments Cervical Cancer Screening 1987 Depression Screening 1987 Hepatitis C Screening 1987 DTaP/Tdap/Td Vaccine (1 - Tdap) 1998 Varicella Vaccines (1 of 2 - 13+ 2-dose series) 2000 Hepatitis B Screening 2005 Regular Well Visit/Exam 18-64 2005 Pneumococcal vaccine <65 (1 of 2 - PCV) 2006 Covid-19 Vaccine ( season) 2024 04/22/2022, 10/05/2021, 02/07/2021, Additional history exists Influenza Vaccine (Season Ended) 2025 HPV Vaccines Aged Out No longer eligi ble based on patient's age to complete this topic Insurance [facility] PPO [facility] H[facility] Care Teams Manufacturing Assembler Relationship Specialty Start Date End Date Denzel Ascencio MD [facility] [place] [address] PCP - General 12/02/17
--- OUTSIDE RECORDS SUMMARY | 2025-02-27 13:54 | XMS_ITS | Clinical Summary ---
Author Organization [email or web address] Address [address] [address] Care Team Providers Care Allergist/Pediatric Pulmonologist Name Role Phone Kendra Morse DO Primary Care Provider Source Comments [email or web address],non-owned Affiliates and Associated Physician Practices is amultiple site organization consisting of ambulatory clinics and hospital sitesin [place], [place], [place] and [place]. This disclosure is being madepursuant to the Care Everywhere program and may not contain all information available regarding this patient. Last updated 18.[email or web address] Allergies Active Allergy Reactions Criticality Noted Date Comments Sulfa Drugs 06/04/2016 Medications * Be aware that medications may not be up to date on this document. Alwaysverify current medications with the patient. cyclobenzaprine (FLEXERIL) 10 MG tablet Take 1 (one) tablet by mouth 3 times daily as needed for Muscle Spasms Active ondansetron (ZOFRAN) 8 MG tablet 0 Active traMADol (ULTRAM) 50 MG tablet TAKE 1 2 TABLETS BY MOUTH EVERY 6 HOURS NEEDED FOR PAIN 0 Active minocycline (MINOCIN) 100 MG capsule Take 1 (one) capsule by mouth every 12 hours 1 Active ipratropium (ATROVENT) 0.02 % nebulizer solution Inhale 0.5 (one-half) mg by mouth every 6 hours 30 vial 4 1 Active Albuterol Sulfate (PROAIR RESPICLICK) 108 (90 Base) MCG/ACT Inhale 4 puffs by mouth as needed 1 Each 11 1 Active fexofenadine (DANNY) 180 MG tabletIndications :Severe persistent asthma with acute exacerbation (HCC) Take 1 (one) tablet by mouth once daily 30 tablet 1 Active fluticasone-salme terol (WIXELA INHUB) 250-50 MCG/DOSE inhalerIndication s:Severe persistent asthma with acute exacerbation (HCC) Inhale 1 (one) puff by mouth 2 times daily 1 Each 1 Active montelukast (SINGULAIR) 10 MG tabletIndications :Severe persistent asthma with acute exacerbation (HCC) Take 1 (one) tablet by mouth once daily 90 tablet 1 Active albuterol HFA (PROVENTIL; VENTOLIN; PROAIR) 108 (90 Base) MCG/ACT inhalerIndication s:Severe persistent asthma with acute exacerbation (HCC) INHALE 2 (TWO) PUFFS BY MOUTH EVERY 4 HOURS NEEDED FOR WHEEZING 6.7 g 5 2 Active fluticasone propionate (Flonase) 50 MCG/ACT nasal sprayIndications: Severe persistent asthma with acute exacerbation (HCC) SPRAY 2 SPRAYS INTO EACH NOSTRIL EVERY DAY 1 g 2 Active digoxin (Lanoxin) 0.125 MG tablet Take 1 (one) tablet by mouth once daily 3 Active dilTIAZem coated beads 24hr (Cardizem CD) 180 MG capsule Take 1 (one) capsule by mouth once daily 3 Active vitamin D, ergocalciferol, (Drisdol) 1.25 MG (57313 UT) capsule TAKE 2 CAPSULE(S) EVERY WEEK BY ORAL ROUTE FOR 1 MONTH THAN 1 CAP THEREAFTER WEEKLY 2 Active Vyvanse 50 MG capsule Take 1 (one) capsule by mouth every morning 3 Active ARIPiprazole (Abilify) 10 MG tablet Take 2 mg by mouth once daily Active albuterol (5 MG/ML) 0.5% 2.5 mg in sodium chloride 0.9 % 3 mL Inhale 2.5 (two and one-half) mg by mouth Active ALPRAZolam (Xanax) 0.5 MG tablet Take 1 (one) tablet by mouth once daily as needed 3 Active buPROPion XL 24hr (Wellbutrin-XL) 300 MG tablet bupropion HCl XL 300 mg 24 hr tablet, extended release TAKE 1 TABLET (300 MG TOTAL) BY MOUTH EVERY MORNING. 3 Active SUMAtriptan (Imitrex) 100 MG tabletIndications :Intractable episodic tension-type headache Take medication at the onset of migraine, may repeat in 2 hours 9 tablet 11 3 Active topiramate (Topamax) 25 MG tabletIndications :Intractable episodic tension-type headache TAKE 1 (ONE) TABLET BY MOUTH 2 TIMES DAILY 60 tablet 11 3 Active Active Problems Problem Noted Date Diagnosed Date High-functioning autism spectrum disorder 2021 Recurrent major depressive disorder, in partial remission 07/04/2022 PTSD (post-traumatic stress disorder) 07/04/2022 Attention deficit hyperactiv ity disorder (ADHD), 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 Personal history of other benign neoplasm 2020 Dizziness 08/12/2021 Asthma 12/24/2020 Tobacco dependence syndrome 12/24/2020 Obstructive sleep apnea syndrome 12/24/2020 Obesity 12/24/2020 Lumbosacral radiculopathy 12/24/2020 Inappropriate sinus tachycardia 12/24/2020 Gastroesophageal reflux disease 12/24/2020 Bipolar disorder 12/24/2020 Cervical high risk HPV (human papillomavirus) te st positive 10/23/2020 Severe persistent asthma 12/07/2019 Immunizations Immunization Administration Dates Next Due Sensipass primary monoval ent 12+ yr 0.3mL Purple cap 02/07/2021,01/17/2021 Social History Tobacco Use Types Packs/Day Years Used Date Smoking Tobacco: Former Cigarettes 1 7 0 10/03/2004 - 10/03/2011 Smokeless Tobacco: Former Tobacco Cessation:Counseling Given: Not Answered Alcohol Use Standard Drinks/Week Comments Yes 0 [...] on file Legal Sex Female 5:59 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 Gender Identity Not on file Sexual Orientation Not on file Last Filed Vital Signs Vital Sign Reading Time Taken Comments Blood Pressure 132/90 02/18/2023 10:24 AM CDT Pulse 100 02/18/2023 10:24 AM CDT Temperature 36.3 C (97.3 F) 02/18/2023 10:24 AM CDT Respiratory Rate 16 10/22/2022 11:58 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 Oxygen Saturation 99% 02/18/2023 10:24 AM CDT Inhaled Oxygen Concentration - - Weight 79.9 kg (176 lb 3.2 oz) 02/18/2023 10:24 AM CDT Height 157.5 cm (5' 2) 02/18/2023 10:24 AM CDT Body Mass Index 32.23 02/18/2023 10:24 AM CDT Plan of Treatment Health Maintenance Due Date Last Done Comments PAP SMEAR 1987 HIV SCREENING 2002 HEPATITIS C SCREENING 04/25/2005 DTAP/TDAP/TD VACCINES (1 - Tdap) 2006 HEPATITIS B VACCINE (1 of 3 - 19+ 3-dose series) 2006 PNEUMOCOCCAL VACCINE (1 of 2 - PCV) 2006 COVID-19 VACCINE (3 - 2023-2 5 season) 2024 02/07/2021, 01/17/2021 INFLUENZA VACCINE (Season Ended) 2025 ZOSTER VACCINE (1 of 2) 2037 HIB VACCINE Aged Out No longer eligi ble based on patient's age to complete this topic HPV VACCINE Aged Out No longer eligi ble based on patient's age to complete this topic MENINGOCOCCAL (Group B) VACCINE SHARED DECISION-MAKING Aged Out No longer eligible based on patient's age to complete this topic MENINGOCOCCAL GROUPS A/C/Y/W VACCINE Aged Out No longer eligible b ased on patient's age to complete this topic Insurance [facility] Care Teams Allergist/Pediatric Pulmonologist Relationship Specialty Start Date End Date Kendra Morse DO [address] [place] [address] PCP - General 08/07/19
--- OUTSIDE RECORDS SUMMARY | 2025-02-27 13:54 | XMS_ITS | CONTINUITY OF CARE DOCUMENT ---
Author Name amanda patel Address Unknown Organization [facility] Address [address] [place] [address] Phone [phone] Care Team Providers Care Mica Spreader Name Role Phone Enrique CORONADO, Iain Unavailable [phone] MANSI CORONADO, RUNDA Unavailable MANSI CORONADO, RUNDA Unavailable [phone] PROBLEMS Condition Status Date Provider Notes Inappropriate sinus tachycardia ? active Iain Nunez MD Anxiety/ depression active Iain Barrera Obesity active Iain Nunez MD Dizziness active Iain Nunez MD Tension headache, migraine variant active Iain Nunez MD Family hx of atrial myxoma i n father active Iain Nunez MD Tobacco abuse completed - Iain Nunez MD JASBIR ? snoring active Iain Nunez MD Degenerative disc disease active Iain newell MD GERD active Iain Nunez MD ADHD active Iain Nunez MD Asthma active Iain Nunez MD ENCOUNTERS Date Type Provider Location Encounter Diag nosis 0 - 0 In-person encounter Office Visit Iain Nnuez MD [facility] 0 - 0 In-person encounter Office Visit Iain Nunez MD [facility] Office 3 - 7 In-person encounter Office Visit Iain Nunez MD [facility] Tension headache, migraine variant 5 - 5 In-person encounter Office Visit Iain Nunez MD [facility] 2 - 3 In-person encounter Office Visit Iain Nunez MD [facility] 0 - 6 In-person encounter Office Visit Iain Nunez [facility] Tobacco [facility] Visit Iain Nunez MD [facility] 8 - 9 In-person encounter Office Visit Iain Nunez MD [facility] 5 - 5 In-person encounter Office Visit Iain Nunez MD [facility] 4 - 9 In-person encounter Office Visit Iain Nunez MD [facility] Inappropriate sinus tachycardia ?AsthmaADHDAnxiety/ depressionGERDObesityDegenerative disc diseaseOSA ? snoring VITAL SIGNS Date Observation Value Provider Body Mass Index (Ratio) 33.10 kg/m2 Harpreet Samaniego blood pressure, diastolic 88 mm[Hg] Beth Hagan blood pressure, systolic 145 mm[Hg] Elaine Hagan oxygen saturation, oximetry 100 % Lois Hagan pulse rate 102 /min Lois Hagan blood pressure, cuff size large An leilani Hagan weight E&M 181 [lb_av] Lois Hagan height E&M 62 [in_i] Lois Hagan Body Mass Index (Ratio) 34.38 kg/m2 Jackeline Nunez MD blood pressure, cuff size large St viet Mckinleyman blood pressure, diastolic 93 mm[Hg] St ephanie Thad blood pressure, systolic 135 mm[Hg] Jose nika Thad oxygen saturation, oximetry 100 % Modesta Oneil respiratory rate E&M 16 /min Saud ie Thad pulse rate 94 /min Modesta Torres n weight E&M 188 [lb_av] Modesta Torres n height E&M 62 [in_i] Modesta Mckinleyhi n Body Mass Index (Ratio) 36.21 kg/m2 Jackeline Nunez MD blood pressure, cuff size large Cecile clayton [place] blood pressure, diastolic 87 mm[Hg] Cecile clayton [place] blood pressure, systolic 131 mm[Hg] Shorty josephine [place] oxygen saturation, oximetry 99 % Lupe Maynard pulse rate 107 /min Lupe barrera weight E&M 198 [lb_av] Lupe barrera respiratory rate E&M 16 /min Diamond rodriguez [place] height E&M 62 [in_i] Lupe barrera Body Mass Index (Ratio) 37.86 kg/m2 Jackeline Nunez MD blood pressure, diastolic 77 mm[Hg] Li nkLogic blood pressure, systolic 135 mm[Hg] Radha kLogic blood pressure, diastolic 77 mm[Hg] Sa ra Michel blood pressure, systolic 135 mm[Hg] Tiffany a Michel respiratory rate E&M 22 /min Izabel Si ms oxygen saturation, oximetry 98 % Izabel Michel pulse rate 104 /min Izabel Michel weight E&M 207 [lb_av] Izabel Michel blood pressure, cuff size regular Sa ra Michel height E&M 62 [in_i] Izabel Michel Body Mass Index (Ratio) 37.67 kg/m2 Jackeline Nunez MD blood pressure, diastolic 83 mm[Hg] Li nkLogic blood pressure, systolic 120 mm[Hg] Radha kLogic blood pressure, cuff size regular Ca therine Rensselaer blood pressure, diastolic 83 mm[Hg] Ca therine Gregory blood pressure, systolic 120 mm[Hg] Cat herine Gregory oxygen saturation, oximetry 99 % Annika Gregory respiratory rate E&M 14 /min Catheri ne Gregory pulse rate 102 /min Iain Nunez MD weight E&M 206 [lb_av] Annika Gregory height E&M 62 [in_i] Annika Gregory Body Mass Index (Ratio) 38.41 kg/m2 Jackeline Nunez MD blood pressure, diastolic 66 mm[Hg] Li nkLogic blood pressure, systolic 120 mm[Hg] Radha kLogic blood pressure, cuff size large Ke rri Gruenenfelder blood pressure, diastolic 66 mm[Hg] Ke rri Gruenenfelder blood pressure, systolic 120 mm[Hg] Ker ri Gruenenfelder oxygen saturation, oximetry 98 % Venessa Grtracynenfelder respiratory rate E&M 16 /min Venessa G erikenenfelder pulse rate 123 /min Venessa Gruenenfe lder weight E&M 210 [lb_av] Venessa Gruenenfe lder height E&M 62 [in_i] Venessa Gruenenfe lder Body Mass Index (Ratio) 38.95 kg/m2 Jackeline Nunez MD blood pressure, diastolic 80 mm[Hg] Li nkLogic blood pressure, systolic 138 mm[Hg] Radha kLogic blood pressure, diastolic 80 mm[Hg] Sh erkeitleon FlynnBarker blood pressure, systolic 138 mm[Hg] She [facility] FlynnBarker oxygen saturation, oximetry 98 % Moustapha Barker pulse rate 100 /min Moustapha villarreal blood pressure, resting No Panda Barker respiratory rate E&M 18 /min Juan Antonio Barker weight E&M 213 [lb_av] Moustapha Flynn villarreal height E&M 62 [in_i] Moustapha Flynn villarreal Body Mass Index (Ratio) 39.14 kg/m2 Jackeline Nunez MD blood pressure, cuff size large Ke rri Gruenenfelder blood pressure, diastolic 80 mm[Hg] Ke rri Gruenenfelder blood pressure, systolic 122 mm[Hg] Ker ri Gruenenfelder oxygen saturation, oximetry 98 % Venessa Gruenenfelder respiratory rate E&M 16 /min Venessa G ruenenfelder pulse rate 129 /min Venessa Gruenenfe lder weight E&M 214 [lb_av] Venessa Gruenenfe lder height E&M 62 [in_i] Venessa Gruenenfe lder Body Mass Index (Ratio) 38.59 kg/m2 Angel chelsey Resendezte blood pressure, cuff size large Ke rri Gruenenfelder blood pressure, diastolic 80 mm[Hg] Ke rri Gruenenfelder blood pressure, systolic 102 mm[Hg] Renny Suarez oxygen saturation, oximetry 97 % Venessa Suarez respiratory rate E&M 16 /min Venessa davejacquesfeliciano pulse rate 131 /min Venessa Whitmore [facility] weight E&M 211 [lb_av] Venessa Whitmore er height E&M 62 [in_i] Venessa Whitmore [facility] ALLERGIES Allergy Name Onset Date Reaction Criticality Status SULFA Low Criticality active HISTORY OF MEDICATION USE Medication Status Instructions Dates Provider Indications Com ments diltiazem HCl (Cardizem CD) 180 mg capsule,extended release 24hr active TAKE 1 CAPSULE BY MOUTH EVERY DAY Iain Nunez MD digoxin 125 mcg (0.125 mg) tablet active Take 1 tablet by mouth once a day for 5 days, -F Iain Nunez MD Vyvanse 40 mg capsule active Take 1 capsule by mouth once a day Iain Nunez MD digoxin 125 mcg (0.125 mg) tablet completed Take 1 tablet by mouth once a day - Modesta Oneil Corlanor 5 mg tablet completed Take 1 tablet by mouth twice a day - Alexus Rich Cardizem CD 180 mg capsule,extended release 24hr completed Take 1 capsule by mouth once a day - Modesta Oneil bupropion HCl 150 mg tablet extended release 24 hr active Lois Hagan ipratropium bromide 0.02% solution completed - Modesta Oneil Minocin 100 mg recon soln completed - Modesta Oneil Belbuca 300 mcg film completed - Modesta Oneil Vraylar 1.5 mg (1)- 3 mg (6) capsule,dose pack completed - Moustapha Barker BUPROPION HCL ER (SMOKING DET) 150 MG ORAL TABLET EXTENDED RELEASE 12 HOUR completed once a day - Moustapha Barker Cardizem 60 mg tablet completed Take 1 tablet by mouth twice a day - Iain Nunez MD Zegerid 20-1.1 mg-gram capsule completed once a day - Modesta Oneil Singulair 10 mg tablet completed tablet by mouth once a day - Modesta Oneil Adderall 30 mg tablet completed tablet by mouth once a day - Iain Nunez MD alprazolam 0.5 mg tablet active Take 1 tablet by mouth three times a day Venessa Suarez #90, 30 days supply, Prescribed by CAL HERNANDEZ, Filled 11/28/2020 gabapentin 300 mg capsule completed Take 1 capsule by mouth twice a day - Modesta Oneil #90, 30 days supply, Prescribed by CAL HERNANDEZ, Filled 12/14/2020 cyclobenzaprine 10 mg tablet completed Take 1 tablet by mouth three times a day - Venessa Suarez #90, 30 days supply, Prescribed by CAL HERNANDEZ, Filled 12/14/2020 ondansetron HCl 8 mg tablet completed Take 1 tablet by mouth every eight hours - Modesta Oneil #30, 30 days supply, Prescribed by CAL HERNANDEZ, Filled 12/15/2020 fexofenadine 180 mg tablet active Take 1 by mouth once a day Venessa Suarez #30, 30 days supply, Prescribed by OR LEVINE, Filled 12/22/2020 albuterol sulfate 2.5 mg/3 mL (0.083 %) solution for nebulization active as directed Venessa Connerelder #300, 25 days supply, Prescribed by CAL HERNANDEZ, Filled 12/22/2020 Wixela Inhub 250-50 mcg/dose blister with device active 2 puff once a day Venessa Montoyaer #60, 30 days supply, Prescribed by RO LEVINE, Filled 12/23/2020 fluticasone propionate 50 mcg/actuation spray,suspension active into both nostrils as needed Venessa Montoyaer #16, 30 days supply, Prescribed by RO LEVINE, Filled 12/23/2020 tramadol 50 mg tablet active tablet by mouth as needed Venessa Montoyaer #56, 7 days supply, Prescribed by CAL HERNANDEZ, Filled 12/24/2020 ProAir HFA 90 mcg/actuation HFA aerosol inhaler active as directed Venessa Montoyaer #8.5, 17 days supply, Prescribed by CAL HERNANDEZ, Filled 12/24/2020 SOCIAL HISTORY Date Observation Value Provider social history E&M S moking History: Dot delgadillo is a former smoker. Iain Nunez MD social history reviewed E&M revi ewed - no changes required Iain Nunez MD smoking, year quit 2011 Lois Will iams number of years as a smoker 8 a Lois Hagan smoking history, tot al pack/day 3-4 cigs a day Loistheodora Hagan cigarette use yes Loistheodora Hagan smoking status Former smoker Lois quiroz social history E&M S moking History: Dot delgadillo is a former smoker. Iain Nunez MD social history reviewed E&M revi ewed - no changes required Iain Nunez MD smoking, year quit 2011 Modesta Oneil number of years as a smoker 8 a Modesta Oneil smoking history, tot al pack/day 3-4 cigs a day Modesta Oneil cigarette use yes Modesta hung smoking status Former smoker Modesta gaming social history E&M S moking History: P atjaci is a former smoker. Iain Nunez MD social history reviewed E&M revi ewed - no changes required Iain Nunez MD smoking, year quit 2011 Lupe Maynard number of years as a smoker 8 a Lupe Maynard smoking history, tot al pack/day 3-4 cigs a day Lupe Maynard cigarette use yes Lupe Gaffney owen smoking status Former smoker Lupe sue smoking, year quit 2011 Iain Nunez MD number of years as a smoker 8 a Iain Nunez MD smoking history, tot al pack/day 3-4 cigs a day Iain Nunez MD cigarette use yes Iain Nunez MD smoking status Former smoker Iain macias MD social history reviewed E&M revi ewed - no changes required Iain Nunez MD social history E&M S moking History: P atient is a former smoker. Iain Nunez MD social history E&M S moking History: P elie is a former smoker. Iain Nunez MD social history reviewed E&M revi ewed - no changes required Iain Nunez MD smoking, year quit 2011 Annika Rensselaer number of years as a smoker 8 a Annika [place] smoking history, tot al pack/day 3-4 cigs a day Annika [place]ensselaer cigarette use yes Annika Gregory smoking status Former smoker Annika Ot is smoking status Former smoker Iain macias MD social history reviewed E&M revi ewed - no changes required Iain Nunez MD smoking, year quit 2011 Venessa Morley enjaydenfelder number of years as a smoker 8 a Venessa Grtracynetreer smoking history, tot al pack/day 3-4 cigs a day Venessa Grtracynetreer cigarette use yes Venessa Conner elder social history reviewed E&M revi ewed - no changes required Iain Nunez MD smoking status Former smoker Iain macias MD smoking, year quit 2011 Sherroscoe Barker number of years as a smoker 8 a Sherjovan Barker smoking history, tot al pack/day 3-4 cigs a day Sherroscoea Barker cigarette use yes Sherjovan milner smoking status Former smoker Iain macias MD social history E&M S moking History: Dot delgadillo is a former smoker. Iain Nunez MD social history reviewed E&M revi ewed - no changes required Iain Nunez MD smoking, year quit 2011 Venessa Morley enjaydenalonso number of years as a smoker 8 a Venessa Grkennether smoking history, tot al pack/day 3-4 cigs a day Venessa Gruenetreer cigarette use yes Venessa Conner elder number of grandchildren Iain Keys social history E&M S moking History: Dot delgadillo is a former smoker. Iain Nunez MD social history reviewed E&M revi ewed - no changes required Iain Nunez MD number of years as a smoker 8 a Venessa Suarez smoking history, tot al pack/day 3-4 cigs a day Venessa Suarez smoking, year quit 2011 Venessa nava cigarette use yes Venessa orozco smoking status Former smoker Venessa goel INSURANCE PROVIDERS Payer name Policy type / Coverage type [employer] TRA MEDICAID (2) Medicaid [id number] ADVANCE DIRECTIVES Name Date DISCUSSED - NO DECISION MADE TREATMENT PLAN Date Name Performer [id number],S, Harpreet Michaels i [id number],B,T ilt table was not able to be scheduled, no testing at this time given her improvement. Harpreet Samaniego [id number],B, Iain macias MD [id number],C,I mproved, advised her to hydrate more during these warm summer months. Iain Nunez MD [id number],S, S ymptoms somewhat improved on digoxin. Continues on diltiazem. Insurance denied corlanor. We will check her digoxin level. If her levels are within normal range, we will increase her digoxin but have her take it every other day. If she continues to be symptomatic, we will arrange tilt table test. Because of her severe asthma, she may not respond to beta blockers well. We have discussed a sleep study in the past but she has not had it done yet. Iain Nunez MD [id number],Meena Quiroz neurology at [facility]. 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 Iain Nunez MD [id number],S, S ymptoms somewhat improved on digoxin. Continues on diltiazem. Insurance denied corlanor. We will check her digoxin level. If she continues to be symptomatic, we will arrange tilt table test. Because of her severe asthma, she may not respond to beta blockers well. We have discussed a sleep study in the past but she has not had it done yet. Iain Nunez MD [id number],S, R esolved. Iain Nunez MD [id number],S, C ontinues on medications. Iain Nunez MD [id number],S, S table. Iain Nunez MD [id number],S, S ymptoms somewhat improved on digoxin. Continues on diltiazem. Insurance denied corlanor. Sinus tachycardia persists with associated symptoms of dizziness and lightheadness, intermittent headaches, possibility of POTS. If she continues to be symptomatic, we will arrange tilt table test. Because of her severe asthma, she may not respond to beta blockers well. Iain Nunez MD [id number],S, D iet, exercise, and weight loss lifestyle changes are encouraged. Iain Nunez MD [id number],S, S table. Iain Nuenz MD [id number],S, F ollows psychiatry. Iain Nunez MD [id number],S, S ymptoms somewhat improved on digoxin. Continues on diltiazem. Insurance denied corlanor. S inus tachycardia persists with associated symptoms of dizziness and lightheadness, intermittent headaches, possibility of POTS. If she continues to be symptomatic, we will arrange tilt table test. Because of her severe asthma, she may not respond to beta blockers well. Iain Nunez MD [id number],C,Stable. Lola Nunez MD [id number],C,Follows psych iatry. Iain Nunez MD [id number],C,S inus tachycardia persists with associated symptoms of dizziness and lightheadness, intermittent headaches, possibility of POTS. If she continues to be symptomatic, we will arrange tilt table test. Given a prescription of Corlanor, 5mg twice a day, to see if this will help control heart rate. Because of her severe asthma, she may not respond to beta blockers well. Iain Nunez MD [id number],S, C ontinues on medications. Iain Nunez MD [id number],S, P ersistent tachycardia despite increasing her Cardizem. 102 bpm on EKG today. Continues on Cardizem CD 180 mg once daily. As she is having some dizziness, will keep her on present dose of cardizem. Iain Nunez MD [id number],S, O n inhalers. 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 Iain Nunez MD [id number],C,C ontinues on Adderall. Iain Nunez MD [id number],C,O n inhalers. 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 Iain Nunez MD [id number],C,P ersistent tachycardia despite increasing her Cardizem. 107 bpm on EKG today. Will discontinue current Cardizem rx. S tart on Cardizem CD 180 mg once daily Iain Nunez MD [id number],C,D iet, exercise, and weight loss lifestyle changes are encouraged. Iain Nunez MD [id number],C,Cessation str ongly encouraged. Iain Nunez MD [id number],C,C ontinues on medications. Iain Nunez MD [id number],C,C ontinues on Adderall. Iain Nunez MD [id number],C,On inhalers. 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 Iain Nunez MD [id number],C,P ersistent tachycardia. Increase Cardizem to 60 mg BID. Iain Nunez MD Cardiology Harpreet Samaniego Cardiology:Tilt tabl e was not able to be scheduled, no testing at this time given her improvement. Harpreet Samaniego Cardiology Iain Barrera Cardiology:Improved, advised her to hydrate more during these warm summer months. Iain Nunez MD Cardiology: S ymptoms somewhat improved on digoxin. Continues on diltiazem. Insurance denied corlanor. We will check her digoxin level. If her levels are within normal range, we will increase her digoxin but have her take it every other day. If she continues to be symptomatic, we will arrange tilt table test. Because of her severe asthma, she may not respond to beta blockers well. We have discussed a sleep study in the past but she has not had it done yet. Iain Nunez MD Cardiology: Meena dunlap neurology at [facility]. 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 Iain Nunez MD Cardiology: S ymptoms somewhat improved on digoxin. Continues on diltiazem. Insurance denied corlanor. We will check her digoxin level. If she continues to be symptomatic, we will arrange tilt table test. Because of her severe asthma, she may not respond to beta blockers well. We have discussed a sleep study in the past but she has not had it done yet. Iain Nunze MD Cardiology: R esolved. Iain Nunez MD Cardiology: C ontinues on medications. Iain Nunez MD Cardiology: S table. Iain Nunez MD Cardiology: S ymptoms somewhat improved on digoxin. Continues on diltiazem. Insurance denied corlanor. Sinus tachycardia persists with associated symptoms of dizziness and lightheadness, intermittent headaches, possibility of POTS. If she continues to be symptomatic, we will arrange tilt table test. Because of her severe asthma, she may not respond to beta blockers well. Iain Nunez MD Cardiology: D iet, exercise, and weight loss lifestyle changes are encouraged. Iain Nunez MD Cardiology: S table. Iain Nunez MD Cardiology: F germán psychiatry. Iain Nunez MD Cardiology: S ymptoms somewhat improved on digoxin. Continues on diltiazem. Insurance denied corlanor. S inus tachycardia persists with associated symptoms of dizziness and lightheadness, intermittent headaches, possibility of POTS. If she continues to be symptomatic, we will arrange tilt table test. Because of her severe asthma, she may not respond to beta blockers well. Iain Nunez MD Cardiology:Stable. Iain florez MD Cardiology:Follows psychiatry. Akanksha Nunez MD Cardiology:Sinus tac hycardia persists with associated symptoms of dizziness and lightheadness, intermittent headaches, possibility of POTS. If she continues to be symptomatic, we will arrange tilt table test. Given a prescription of Corlanor, 5mg twice a day, to see if this will help control heart rate. Because of her severe asthma, she may not respond to beta blockers well. Iain Nunez MD Cardiology: C ontinues on medications. Iain Nunez MD Cardiology: P ersistent tachycardia despite increasing her Cardizem. 102 bpm on EKG today. Continues on Cardizem CD 180 mg once daily. As she is having some dizziness, will keep her on present dose of cardizem. Iain Nunez MD Cardiology: O n inhalers. 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 Iain Nunez MD Cardiology Follow up :Continues on Adderall. Iain Nunez MD Cardiology Follow up :On inhalers. 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 Iain Nunez MD Cardiology Follow up :Persistent tachycardia despite increasing her Cardizem. 107 bpm on EKG today. Will discontinue current Cardizem rx. S tart on Cardizem CD 180 mg once daily Iain Nunez MD Cardiology:Diet, exe rcise, and weight loss lifestyle changes are encouraged. Iain Nunez MD Cardiology:Cessation strongly en couraged. Iain Nunez MD Cardiology:Continues on medications. Iain Nunez MD Cardiology:Continues on Adderall. Iain Nunez MD Cardiology:On inhalers. 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 Iain Nunez MD Cardiology:Persisten t tachycardia. Increase Cardizem to 60 mg BID. Iain Nunez MD Cardiology Follow up:Continues o n Adderall. Iain Nunez MD Cardiology Follow up :Diet, exercise, and weight loss lifestyle changes are encouraged. Iain Nunez MD Cardiology Follow up :She coninues on bronchodilator. Denies using the nebulizers. Iain Nunez MD Cardiology Follow up :Persisten tachycardia. Did not respond much to low-dose Cardizem. I've increased dose to 30 mg twice daily. If HR is >100, she can take it three times a day. Iain Nunez MD Cardiology New Patient :Weight l oss advised Ruy Keys Cardiology New Patient :Continue s on medications. Ruy Keys Cardiology New Patie nt :Continues on inhalers. Follows pulmonary. Ruy Keys Cardiology New Patie nt :Will arrange titration study. Insurance will not allow in home sleep study. Ruy Keys Cardiology New Patie nt :Persistent sinus tachycardia. Likely related to beta 2 agonist for asthma. Will start Cardizem 15mg twice daily. Ruy Keys Date Name MAGNESIUM COMPREHENSIVE METABO LIC PANEL, W/EGFR DIGOXIN TSH, free T4, total T3 CBC (H/H, RBC, INDIC ES, WBC, PLT) COMPREHENSIVE METABO LIC PANEL, W/EGFR BASIC METABOLIC PANE L W/EGFR Complete Echo Sleep Study Titratio n HISTORY OF PROCEDURES Procedure Date Procedure Name Provider Procedure Notes S tatus EKG Iain Nunez MD complet ed EKG Iain Nunez MD complet ed EKG Iain Nunez MD complet ed EKG Iain Nunez MD complet ed EKG Iain Nunez MD complet ed EKG Iain Nunez MD complet ed EKG Iain Nunez MD complet ed EKG Iain Nunez MD complet ed EKG Iain Nunez MD complet ed
[2025-02-27 14:11] VITALS: BP 150/102; PULSE 118; RESP 16; TEMP 36.4; O2SAT 100
--- NOTE | 2025-02-27 15:03 | ED_ITS ---
HPI - Dizziness General Chief Complaint: Dizziness <Ayesha Flores PA-C - Last Filed: 02/27/25 18:54> Stated Complaint: Dizzy, lightheaded, SMALL, fast HR <Ayesha Flores PA-C - Last Filed: 02/27/25 18:54> Time Seen by Provider: 02/27/25 15:03 <Ayesha Flores PA-C - Last Filed: 02/27/25 18:54> Focused HPI: This is a 39 year old female that presents to the ER for headache, dizziness/lightheadedness. Ongoing since yesterday. Reports her blood pressure has been elevated. She also woke up with morning with right hand swelling. Reports concern for blood clot in her arm. Also reports she has had a runny nose, congestion, cough over the weekend. Reports her back pain has been worse than usual and she feels short of breath. GENERAL: Well-appearing, well-nourished, and in no acute distress. HEAD: Normocephalic, atraumatic. CHEST: Clear to auscultation. ?No respiratory distress. HEART: Regular rate and rhythm.? NEURO: ?Alert and oriented x3. Patient screened in triage and initial orders placed.? ?Additional care and disposition to be based upon?diagnostic testing and treatment. <Ayesha Flores PA-C - Last Filed: 02/27/25 18:54> Related Data Allergies/Adverse Reactions: Allergies Allergy/AdvReac Type Severity Reaction Status Date / Time Sulfa (Sulfonamide Allergy Mild Rash Verified 02/27/25 13:49 Antibiotics) <Ayesha Flores PA-C - Last Filed: 02/27/25 18:54> Review of Systems 2 Review of Systems: All systems reviewed & are unremarkable except as noted in HPI and below <Kenia Stevens APRN - Last Filed: 02/27/25 18:55> Exam 2 Narrative: GENERAL: Well appearing, well-nourished, non-toxic, in no acute distress. HEAD: Normocephalic, atraumatic. NECK: Supple. No adenopathy, no masses. RESPIRATORY: Airway patent, respirations nonlabored. Clear to auscultation bilaterally, no rales, rhonchi, wheezing. CARDIOVASCULAR: Regular rate and rhythm without murmurs, rubs, or gallops. Peripheral pulses 2+ and equal bilaterally. ABDOMINAL: Soft, nontender, nondistended, no hepatosplenomegaly. Normoactive BS. MUSCULOSKELETAL: Moves all extremities. Strength/ROM intact without gross deformities. SKIN: Warm, dry, normal color. No rashes. NEURO: A&O X3. Speech clear. Cranial nerves II-XII intact. No ataxic movements. PSYCHIATRIC: Appropriate mood and affect. Normal interaction. <Kenia Stevens, TIERRA - Last Filed: 02/27/25 18:55> Course Vital Signs Vital signs: Vital Signs Temperature 97.6 F 02/27/25 14:11 Pulse Rate 118 H 02/27/25 14:11 Respiratory Rate 16 02/27/25 14:11 Blood Pressure 150/102 H 02/27/25 14:11 Pulse Oximetry 100 02/27/25 14:11 Temperature 97.6 F 02/27/25 14:11 Pulse Rate 91 02/27/25 17:15 Respiratory Rate 18 02/27/25 17:15 Blood Pressure 118/90 02/27/25 17:15 Pulse Oximetry 100 02/27/25 17:15 <Ayesha Flores PA-C - Last Filed: 02/27/25 18:54> Vital Signs Temperature 97.6 F 02/27/25 14:11 Pulse Rate 118 H 02/27/25 14:11 Respiratory Rate 16 02/27/25 14:11 Blood Pressure 150/102 H 02/27/25 14:11 Pulse Oximetry 100 02/27/25 14:11 Temperature 97.6 F 02/27/25 14:11 Pulse Rate 91 02/27/25 17:15 Respiratory Rate 18 02/27/25 17:15 Blood Pressure 118/90 02/27/25 17:15 Pulse Oximetry 100 02/27/25 17:15 <Kenia Stevens APRN - Last Filed: 02/27/25 18:55> MDM - Dizziness MDM Narrative Medical decision making narrative: This is a 39 year old female that presents to the ER for headache, dizziness/lightheadedness. Ongoing since yesterday. Reports her blood pressure has been elevated. She also woke up with morning with right hand swelling. Reports concern for blood clot in her arm. Also reports she has had a runny nose, congestion, cough over the weekend. Reports her back pain has been worse than usual and she feels short of breath. Labs Ordered: CBC, CMP, UA, PTT, INR, COVID/flu/RSV swab Imaging Ordered: Chest x-ray, left hand x-ray Medications Ordered: 1 L normal saline IV bolus Results: Patient's chest x-ray indicates No focal infiltrate or effusion. Pt's L hand x-ray indicates Diagnosis: COVID, Left hand AVN Consults: hand specialist (outpatient) Patient Education/Shared MDM: Results of lab work and imaging shared with patient. She declines need for nausea or pain medication. Patient strongly advised to maintain hydration status upon discharge and follow-up with their PCP as soon as possible. Results of hand x-ray shared with pt. She will be referred to a hand specialist outpatient. Pt verbalizes understanding of need to follow- up and reports she already has a brace for this hand. She will not be discharged home with any new prescriptions. Strict return precautions provided. Patient verbalized understanding and is in agreement with plan. Vital signs stable at time of discharge. All questions answered. <Kenia Stevens APRN - Last Filed: 02/27/25 18:55> Differential Diagnosis Differential diagnosis: Likely benign paroxysmal positional vertigo and other (COVID/RSV/flu, dehydration) <Kenia Stevens APRN - Last Filed: 02/27/25 18:55> Lab Data Attestation: I reviewed the patient's lab results. <Kenia Stevens APRN - Last Filed: 02/27/25 18:55> Result diagrams: 02/27/25 16:38 02/27/25 16:38 <Ayesha Flores PA-C - Last Filed: 02/27/25 18:54> Labs: Lab Results 02/27/25 02/27/25 Range/Units 16:38 16:40 WBC 4.8 (4.5-10.0) K/mm3 RBC 4.54 (4.2-5.4) M/mm3 Hgb 12.9 (12.0-15.0) g/dL Hct 39.8 (37.0-47.0) % MCV 87.7 (80-100) fl MCH 28.4 (26-34) pg MCHC 32.4 (32-36) g/dl RDW 12.6 (11.5-14.5) % Plt Count 282 (150-375) k/mm3 MPV 10.8 H (7.4-10.4) fl Immature Gran % (Auto) 0.2 (0-0.5) % Neut % (Auto) 36.3 L (45.5-73.1) % Lymph % (Auto) 49.1 H (18.3-44.2) % [place] % (Auto) 6.5 (2.6-8.5) % Eos % (Auto) 7.7 H (0-4.4) % Baso % (Auto) 0.2 (0.2-1.2) % Lymph # (Auto) 2.35 (0.9-3.2) K/mm3 [place] # (Auto) 0.3 (0.1-0.6) K/mm3 Eos # (Auto) 0.4 H (0-0.3) K/mm3 Baso # (Auto) 0.0 (0.0-0.1) K/mm3 Abs Immat Gran (auto) 0.01 (0.00-0.031) K/mm3 Absolute Neuts (auto) 1.7 (1.3-6.7) K/mm3 Absolute Nucleated RBC 0.000 (0.0-0.012) K/mm3 Nucleated RBC % 0.0 (0.0-0.2) % PT 12.2 (11.1-14.7) Seconds INR 0.9 APTT 23.8 (22.3-36.8) Seconds Sodium 139 (137-145) mmol/L Potassium 4.1 (3.4-5.0) mmol/L Chloride 109 H (98-107) mmol/L Carbon Dioxide 23 (22-30) mmol/L Anion Gap 7 (4-12) mmol/L BUN 16 (7-17) mg/dL Creatinine 0.81 (0.7-1.0) mg/dL Estim Creat Clear Calc 90 ml/min Estimated GFR > 60 (59 - ) Glucose 113 H (65-110) mg/dL Calcium 9.3 (8.4-10.2) mg/dL Total Bilirubin 0.2 (0.2-1.3) mg/dL AST 23 (14-36) U/L ALT 25 (6-35) U/L Alkaline Phosphatase 45 (38-126) U/L Total Protein 7.0 (6.3-8.2) g/dL Albumin 4.1 (3.5-5.1) g/dL Urine Color Yellow (Yellow) Urine Appearance Clear (Clear) Urine pH 5.5 (5.0-9.0) Ur Specific [place] 1.031 (1.001-1.035) Urine Protein Negative (Negative) mg/dL Urine Glucose (UA) Negative (Negative) mg/dL Urine Ketones Trace H (Negative) mg/dL Ur Blood (Man) Negative (Negative) Urine Nitrate Negative (Negative) Urine Bilirubin Negative (Negative) Urine Urobilinogen 0.2 (<2.0) mg/dL Leukocyte Esterase Rfl Negative (Negative) CINTHYA/UL POC Urine HCG, Qual Negative (Negative) Influenza A (RT-PCR) Negative (Negative) Influenza B (RT-PCR) Negative (Negative) RSV (RT-PCR) Negative (Negative) SARS-CoV-2 RNA (RT-PCR) Positive A (Negative) <Ayesha Flores PA-C - Last Filed: 02/27/25 18:54> Lab Results 02/27/25 02/27/25 Range/Units 16:38 16:40 WBC 4.8 (4.5-10.0) K/mm3 RBC 4.54 (4.2-5.4) M/mm3 Hgb 12.9 (12.0-15.0) g/dL Hct 39.8 (37.0-47.0) % MCV 87.7 (80-100) fl MCH 28.4 (26-34) pg MCHC 32.4 (32-36) g/dl RDW 12.6 (11.5-14.5) % Plt Count 282 (150-375) k/mm3 MPV 10.8 H (7.4-10.4) fl Immature Gran % (Auto) 0.2 (0-0.5) % Neut % (Auto) 36.3 L (45.5-73.1) % Lymph % (Auto) 49.1 H (18.3-44.2) % [place] % (Auto) 6.5 (2.6-8.5) % Eos % (Auto) 7.7 H (0-4.4) % Baso % (Auto) 0.2 (0.2-1.2) % Lymph # (Auto) 2.35 (0.9-3.2) K/mm3 [place] # (Auto) 0.3 (0.1-0.6) K/mm3 Eos # (Auto) 0.4 H (0-0.3) K/mm3 Baso # (Auto) 0.0 (0.0-0.1) K/mm3 Abs Immat Gran (auto) 0.01 (0.00-0.031) K/mm3 Absolute Neuts (auto) 1.7 (1.3-6.7) K/mm3 Absolute Nucleated RBC 0.000 (0.0-0.012) K/mm3 Nucleated RBC % 0.0 (0.0-0.2) % PT 12.2 (11.1-14.7) Seconds INR 0.9 APTT 23.8 (22.3-36.8) Seconds Sodium 139 (137-145) mmol/L Potassium 4.1 (3.4-5.0) mmol/L Chloride 109 H (98-107) mmol/L Carbon Dioxide 23 (22-30) mmol/L Anion Gap 7 (4-12) mmol/L BUN 16 (7-17) mg/dL Creatinine 0.81 (0.7-1.0) mg/dL Estim Creat Clear Calc 90 ml/min Estimated GFR > 60 (59 - ) Glucose 113 H (65-110) mg/dL Calcium 9.3 (8.4-10.2) mg/dL Total Bilirubin 0.2 (0.2-1.3) mg/dL AST 23 (14-36) U/L ALT 25 (6-35) U/L Alkaline Phosphatase 45 (38-126) U/L Total Protein 7.0 (6.3-8.2) g/dL Albumin 4.1 (3.5-5.1) g/dL Urine Color Yellow (Yellow) Urine Appearance Clear (Clear) Urine pH 5.5 (5.0-9.0) Ur Specific [place] 1.031 (1.001-1.035) Urine Protein Negative (Negative) mg/dL Urine Glucose (UA) Negative (Negative) mg/dL Urine Ketones Trace H (Negative) mg/dL Ur Blood (Man) Negative (Negative) Urine Nitrate Negative (Negative) Urine Bilirubin Negative (Negative) Urine Urobilinogen 0.2 (<2.0) mg/dL Leukocyte Esterase Rfl Negative (Negative) CINTHYA/UL POC Urine HCG, Qual Negative (Negative) Influenza A (RT-PCR) Negative (Negative) Influenza B (RT-PCR) Negative (Negative) RSV (RT-PCR) Negative (Negative) SARS-CoV-2 RNA (RT-PCR) Positive A (Negative) <Kenia Stevens APRN - Last Filed: 02/27/25 18:55> Imaging Data Attestation: I personally reviewed and interpreted this imaging study as follows: < Kenia Stevens APRN - Last Filed: 02/27/25 18:55> Radiologist's impression: Impressions Chest X-Ray 02/27/25 15:38 IMPRESSION: No focal infiltrate or effusion. Hand X-Ray 02/27/25 18:13 IMPRESSION: No acute osseous abnormality left hand. 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 <Kenia Stevens APRN - Last Filed: 02/27/25 18:55> Discharge Plan Discharge Clinical Impression: COVID-19, Hand pain, left Upper respiratory infection Qualifiers: URI type: unspecified URI Qualified Code(s): J06.9 - Acute upper respiratory infection, unspecified <Ayesha Flores PA-C - Last Filed: 02/27/25 18:54> Patient Disposition: Home <KAYLA Burris Last Filed: 02/27/25 18:54> Condition: Stable <KAYLA Burris Last Filed: 02/27/25 18:54> Instructions: Antibiotic Form, COVID-19 (Coronavirus Disease 2019) (ED) <KAYLA Burris Last Filed: 02/27/25 18:54> Additional Instructions: Please return to the ER with any worsening symptoms. Follow-up with primary care provider as soon as possible. Take all medications as prescribed, including regularly scheduled medications. You may use Tylenol, ibuprofen, and Zofran to treat your symptoms. <Ayesha Flores PA-C - Last Filed: 02/27/25 18:54> Patient Language: Bangladeshi <Ayesha Flores PA-C - Last Filed: 02/27/25 18:54> Prescriptions: No Action promethazine 25 mg tablet 25 mg PO Q6H PRN (Reason: nausea and vomiting) Qty: 10 0RF prednisone 20 mg tablet 40 mg PO DAILY 5 Days Qty: 10 0RF <Ayesha Flores PA-C - Last Filed: 02/27/25 18:54> Follow-up/Referrals: Sincere [place] MD [Physician] - (hand specialist) UNKNOWN,DOCTOR [Primary Care Provider] - <Ayesha Flores PA-C - Last Filed: 02/27/25 18:54> Time of Disposition: 18:55 <Ayesha Flores PA-C - Last Filed: 02/27/25 18:54> 18:55 <Kenia Stevens APRN - Last Filed: 02/27/25 18:55>
--- NOTE | 2025-02-27 15:06 | ECG_ITS ---
Test Date: 2025-02-27 16:36:55 Measurements Intervals [place] Rate: 90 P: 36 MT: 132 QRS: 33 QRSD: 85 T: 36 QT: 335 QTc: 411 Interpretive Statements SINUS RHYTHM No previous ECG available for comparison Electronically Signed On 02-28-2025 15:12:31 CDT by Richard Werner M.D.
--- OUTSIDE RECORDS SUMMARY | 2025-02-27 15:11 | XMS_ITS | Referral Summary ---
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
--- OUTSIDE RECORDS SUMMARY | 2025-02-27 15:11 | XMS_ITS | Clinical Summary ---
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 PPO [facility] Care Teams Flue Tile Press Operator Relationship Specialty Start Date End Date Denzel Ascencio MD [facility] [place] [address] PCP - General 12/02/17
--- OUTSIDE RECORDS SUMMARY | 2025-02-27 15:11 | XMS_ITS | Clinical Summary ---
Author Organization [facility] Address [address] [place] [address] Care Team Providers Care Internship Name Role Phone Unavailable Primary Care Provider [...] NEEDED 6.7 Gram 5 11/20/2024 6:22 PM HOG FEEDER 4 Active albuterol sulfate HFA 90 mcg/actuation aerosol inhaler Take 2 Puffs by inhalation 3 times daily as needed. 6.7 Gram 6 4 Active drospirenone, contraceptive, (Slynd) 4 mg (28) Tablet Take 1 Tablet (4 mg) by mouth daily. 30 Tablet 6 12/08/2024 1:16 PM HOG FEEDER 4 03/11/20 25 Active amphetamine-de xtroamphetamin e (ADDERALL XR) 20 mg Extended Release 24 hour capsule Take 1 Capsule (20 mg) by mouth daily 30 Capsule 10/29/2024 6:26 PM HOG FEEDER Active metoprolol succinate (TOPROL XL) 25 mg [...]
--- OUTSIDE RECORDS SUMMARY | 2025-02-27 15:11 | XMS_ITS | CONTINUITY OF CARE DOCUMENT ---
Author Name amanda patel Address Unknown Organization [facility] Address [address] [place] [address] Phone [phone] Care Team Providers Care Biometric Fingerprinting Technician Name Role Phone Enrique CORONADO, Iain Unavailable [phone] MANSI CORONADO, RUNDA Unavailable [phone] MANSI CORONADO, RUNDA Unavailable PROBLEMS Condition Status Date Provider Notes Inappropriate sinus tachycardia ? active Iain Nunez MD Asthma active Iain Nunez MD ADHD active Iain Nunez MD Anxiety/ depression active Iain Barrera GERD active Iain Nunez MD Obesity active Iain Nunez MD Degenerative disc disease active Iain newell MD JASBIR ? snoring active Iain Nunez MD Tobacco abuse completed - Iain Nunez MD Family hx of atrial myxoma i n father active Iain Nunez MD Dizziness active Iain Nunez MD Tension headache, migraine variant active Iain Nunez MD ENCOUNTERS Date Type Provider Location Encounter Diag nosis 0 - 0 In-person encounter Office Visit Iain Nunez MD [place] [facility] 0 - 0 In-person encounter Office Visit Iain Nunez MD [facility] Office 3 - 7 In-person encounter Office Visit Iain Nunez MD [place] [facility] Tension headache, migraine variant 5 - 5 In-person encounter Office Visit Iain Nunez MD [place] [facility] 2 - 3 In-person encounter Office Visit Iain Nunez MD [place] [facility] 0 - 6 In-person encounter Office Visit Iain Nunez MD [place] [facility]person encounter Office Visit Iain Nunez MD [place] [facility] 8 - 9 In-person encounter Office Visit Iain Nunez MD [place] [facility] 5 - 5 In-person encounter Office Visit Iain Nunez MD [place] [facility] 4 - 9 In-person encounter Office Visit Iain Nunez MD [place] [facility] Inappropriate sinus tachycardia ?AsthmaADHDAnxiety/ depressionGERDObesityDegenerative disc diseaseOSA ? snoring VITAL SIGNS Date Observation Value Provider Body Mass Index (Ratio) 33.10 kg/m2 Harpreet Samaniego blood pressure, diastolic 88 mm[Hg] Beth aHgan blood pressure, systolic 145 mm[Hg] Elaine Hagan [...] Torres n height E&M 62 [in_i] Modesta Mckinleyms n Body Mass Index (Ratio) 36.21 kg/m2 Jackeline Nunez MD blood pressure, cuff size large Cecile clayton [place] blood pressure, diastolic 87 mm[Hg] Cecile clayton [place] blood pressure, systolic 131 mm[Hg] Shorty josephine [place] oxygen saturation, oximetry 99 % Lupe Maynard pulse rate 107 /min Lupe barrera weight E&M 198 [lb_av] Lupe barrera respiratory rate E&M 16 /min Diamond rodriguez [place] height E&M 62 [in_i] Lupe barrera Body [...] blood pressure, cuff size regular Ca therine [place] blood pressure, diastolic 83 mm[Hg] Ca therine Grgeory blood pressure, systolic 120 mm[Hg] Cat herine [...] FlynnBarker blood pressure, systolic 138 mm[Hg] [facility] FlynnBarker oxygen saturation, oximetry 98 % Moustapha [...] davejacquesfeliciano pulse rate 131 /min Venessa Whitmore [facility] [place]note 2] weight E&M 211 [lb_av] Venessa Whitmore er height E&M 62 [in_i] Venessa Whitmore [facility] [place]note 2] ALLERGIES Allergy Name Onset Date Reaction Criticality [...] Suarez #30, 30 days supply, Prescribed by RO LEVINE, Filled 12/22/2020 albuterol sulfate 2.5 mg/3 [...] social history E&M S moking History: P leie is a former smoker. Iain Nunez MD social history reviewed E&M revi ewed - no changes required Iain Nunez MD smoking, year quit 2011 Annika [place] number of years as a smoker 8 a Annika [place] smoking history, tot al pack/day 3-4 cigs a day Annika [place] cigarette use yes Annika Gregory smoking status [...] alliance party ID TRA MEDICAID (2) Medicaid [id number] ADVANCE DIRECTIVES Name Date DISCUSSED - NO DECISION MADE TREATMENT PLAN Date Name Performer [id number],S, Harpreet Michaels i [id number],B,T ilt table was not able to be scheduled, no testing at this time given her improvement. Harpreet Samaniego [id number],B, Iain macias MD [id number],C,I mproved, advised her to hydrate more during these warm summer months. Iain Nunez MD [id number],S, S ymptoms somewhat improved on digoxin. Continues [...] had it done yet. Iain Nunez MD [id number],Meena Quiroz neurology at [facility]. 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 Iain Nunez MD [id number],S, S ymptoms somewhat improved on digoxin. Continues on diltiazem. Insurance denied corlanor. We will check her digoxin level. If she continues to be symptomatic, we will arrange tilt table test. Because of her severe asthma, she may not respond to beta blockers well. We have discussed a sleep study in the past but she has not had it done yet. Iain Nunez MD [id number],S, R esolved. Iain Nunez MD [id number],S, C ontinues on medications. Iain Nunez MD [id number],S, S table. Iain Nunez MD [id number],S, S ymptoms somewhat improved on digoxin. Continues on diltiazem. Insurance denied corlanor. Sinus tachycardia persists with associated symptoms of dizziness and lightheadness, intermittent headaches, possibility of POTS. If she continues to be symptomatic, we will arrange tilt table test. Because of her severe asthma, she may not respond to beta blockers well. Iain Nunez MD [id number],S, D iet, exercise, and weight loss lifestyle changes are encouraged. Iain Nunez MD [id number],S, S table. Iain Nunez MD [id number],S, F ollows psychiatry. Iain Nunez MD [id number],S, S ymptoms somewhat improved on digoxin. Continues on diltiazem. Insurance denied corlanor. S inus tachycardia persists with associated symptoms of dizziness and lightheadness, intermittent headaches, possibility of POTS. If she continues to be symptomatic, we will arrange tilt table test. Because of her severe asthma, she may not respond to beta blockers well. Iain Nunez MD [id number],C,Stable. Lola Nunez MD [id number],C,Follows psych iatry. Iain Nunez MD [id number],C,S inus tachycardia persists with associated symptoms of dizziness and lightheadness, intermittent headaches, possibility of POTS. If she continues to be symptomatic, we will arrange tilt table test. Given a prescription of Corlanor, 5mg twice a day, to see if this will help control heart rate. Because of her severe asthma, she may not respond to beta blockers well. Iain Nunez MD [id number],S, C ontinues on medications. Iain Nunez MD [id number],S, P ersistent tachycardia despite increasing her Cardizem. 102 bpm on EKG today. Continues on Cardizem CD 180 mg once daily. As she is having some dizziness, will keep her on present dose of cardizem. Iain Nunez MD [id number],S, O n inhalers. Follows segment block layer. Iain Nunez MD [id number],C,C ontinues on Adderall. Iain Nunez MD [id number],C,O n inhalers. Follows segment block layer. Iain Nunez MD [id number],C,P ersistent tachycardia despite increasing her Cardizem. 107 bpm on EKG today. Will discontinue current Cardizem rx. S tart on Cardizem CD 180 mg once daily Iain Nunez MD [id number],C,D iet, exercise, and weight loss lifestyle changes are encouraged. Iain Nunez MD [id number],C,Cessation str ongly encouraged. Iain Nunez MD [id number],C,C ontinues on medications. Iain Nunez MD [id number],C,C ontinues on Adderall. Iain Nunez MD [id number],C,On inhalers. Follows segment block layer. Iain Nunez MD [id number],C,P ersistent tachycardia. Increase Cardizem to 60 mg [...] Nunez MD Cardiology: Meena dunlap neurology at [facility]. She had a spinal tap in October [...] it done yet. Iain Nunez MD Cardiology: R esolved. Iain Nunez MD [...] Nunez MD Cardiology: O n inhalers. Follows segment block layer. Iain Nunez MD Cardiology Follow up :Continues on Adderall. Iain Nunez MD Cardiology Follow up :On inhalers. Follows segment block layer. Iain Nunez MD Cardiology Follow up :Persistent [...] Adderall. Iain Nunez MD Cardiology:On inhalers. Follows segment block layer. Iain Nunez MD Cardiology:Persisten t tachycardia. Increase [...]
--- OUTSIDE RECORDS SUMMARY | 2025-02-27 15:11 | XMS_ITS | Encounter Summary ---
Author Organization [facility] Address [address] [place] [address] Care Team Providers Care Heel Edge Inker Machine Name Role Phone Kendra Morse DO Primary Care Provider [phone] Reason for Visit * Reason Onset Date Comments MEDICATION REFILL 11/14/2023 Encounter Details Date Type Department Care Team (Late st Contact Info) Description 11/14/2023 Refill [facility] - Pulmonology [address] [place] [address], [place] [address] Beny Stokes MD [address] [place] [address] OF PULMONARY/[place] [address] MEDICATION REFILL Social History Tobacco [...] on file 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
--- OUTSIDE RECORDS SUMMARY | 2025-02-27 15:12 | XMS_ITS | Clinical Summary ---
Author Organization [facility] [employer] Address [address] [place] [address] Care Team Providers Care Museum Librarian Name Role Phone Kendra Morse DO Primary Care Provider Source Comments [facility] [employer],non-owned Affiliates and Associated Physician Practices is amultiple site organization consisting of ambulatory clinics and hospital sitesin [place], [place], [place] and [place]. This disclosure is being madepursuant to the Care Everywhere program and may not contain all information available regarding this patient. Last updated 18.[facility] [employer] Allergies Active Allergy Reactions Criticality Noted Date [...] Active vitamin D, ergocalciferol, (Drisdol) 1.25 MG (09841 UT) capsule TAKE 2 CAPSULE(S) EVERY WEEK [...] 12/07/2019 Immunizations Immunization Administration Dates Next Due Change Collective primary monoval ent 12+ yr 0.3mL Purple [...] on file Legal Sex Female 5:59 AM MORGUE LIBRARIAN Gender Identity Not on file Sexual Orientation Not on file Last Filed Vital Signs Vital Sign Reading Time Taken Comments Blood Pressure 132/90 02/18/2023 10:24 AM CDT Pulse 100 02/18/2023 10:24 AM CDT Temperature 36.3 C (97.3 F) 02/18/2023 10:24 AM CDT Respiratory Rate 16 10/22/2022 11:58 AM MORGUE LIBRARIAN Oxygen Saturation 99% 02/18/2023 10:24 AM CDT [...] patient's age to complete this topic Insurance [facility] Care Teams Museum Librarian Relationship Specialty Start Date End Date Kendra Morse DO [address] [place] [id number] PCP - General 08/07/19
[2025-02-27 16:42] VITALS: BP 141/89; PULSE 88; RESP 12; O2SAT 99
[2025-02-27 16:43] LABS: BEDSIDEPREGUCG Negative (Negative)
[2025-02-27 16:45] LABS: Add Urine Microscopic? NO; Appearance Urine Clear (Clear); Bilirubin Urine Negative (Negative); Blood Urine Negative (Negative); Color Urine Yellow (Yellow); Glucose Urine UA Negative (Negative); Ketones Urine Trace mg/dL (Negative); Leukocyte Esterase Ur Negative LEU/UL (Negative); Nitrate Urine Negative (Negative); Protein Urine Negative (Negative); Specific Grav Ur 1.031 (1.001-1.035); Urobilinogen Urine 0.2 mg/dL (<2.0); pH Urine 5.5 (5.0-9.0)
[2025-02-27 16:46] LABS: Basophils Percent Auto 0.2 % (0.2-1.2); Eosinophils Absolute Auto 0.4 K/mm3 (0-0.3); Eosinophils Percent Auto 7.7 % (0-4.4); Hematocrit 39.8 % (37.0-47.0); Hemoglobin 12.9 g/dL (12.0-15.0); Immature Granulocyte Absolute 0.01 K/mm3 (0.00-0.031); Immature Granulocyte Percent A 0.2 % (0-0.5); Lymphocytes Absolute Auto 2.35 K/mm3 (0.9-3.2); Lymphocytes Percent Auto 49.1 % (18.3-44.2); Mean Corpuscular HGB Conc 32.4 g/dl (32-36); Mean Corpuscular Hemoglobin 28.4 pg (26-34); Mean Corpuscular Volume 87.7 fl (80-100); Mean Platelet Volume 10.8 fl (7.4-10.4); Monocytes Absolute Auto 0.3 K/mm3 (0.1-0.6); Monocytes Percent Auto 6.5 % (2.6-8.5); Neutrophils Absolute Auto 1.7 K/mm3 (1.3-6.7); Neutrophils Percent Auto 36.3 % (45.5-73.1); Platelet Count Result 282 k/mm3 (150-375); Red Blood Count 4.54 M/mm3 (4.2-5.4); Red Cell Distribution Width 12.6 % (11.5-14.5); White Blood Count 4.8 K/mm3 (4.5-10.0)
[2025-02-27 17:02] LABS: Alanine Aminotransferase 25 U/L (6-35); Albumin Level 4.1 g/dL (3.5-5.1); Alkaline Phosphatase 45 U/L (38-126); Anion Gap 7 mmol/L (4-12); Aspartate Amino Transferase 23 U/L (14-36); Bilirubin,Total 0.2 mg/dL (0.2-1.3); Blood Urea Nitrogen 16 mg/dL (7-17); Calcium 9.3 mg/dL (8.4-10.2); Carbon Dioxide 23 mmol/L (22-30); Chloride 109 mmol/L (98-107); Estimated CRCL calculation 90 ml/min; Estimated Glomerular Filt Rate > 60; Glucose 113 mg/dL (65-110); Potassium 4.1 mmol/L (3.4-5.0); Sodium 139 mmol/L (137-145)
[2025-02-27 17:13] LABS: INR 0.9; Partial Thromboplastin Time 23.8 Seconds (22.3-36.8); Prothrombin Time 12.2 Seconds (11.1-14.7)
[2025-02-27 17:15] VITALS: BP 118/90; PULSE 91; RESP 18; O2SAT 100
[2025-02-27 17:22] LABS: Influenza A QL RT-PCR Negative (Negative); Influenza B QL RT-PCR Negative (Negative); RSV RNA, RT-PCR Negative (Negative); SARS-CoV-2 RNA PCR Positive (Negative)
[2025-02-27] MEDS: SODIUM CHLORIDE 0.9% IV 1,000 ML 999 ML IV CONT (17:50)
--- NOTE | 2025-02-27 19:10 | PC.NURSE ---
Attempted to d/c patient. Pt states she has multiple questions and would like to talk with Kenia Stevens NP again. Kenia notified.
== END 2025-02-27 19:32 | disposition home or self-care (01) ==
PROVIDERS: Physician Assistant; Emergency Provider Registered Nurse
DX: U07.1 COVID-19 (principal); J06.9 Acute upper respiratory infection, unspecified; M79.642 Pain in left hand; R93.6 Abnormal findings on diagnostic imaging of limbs
CPT/HCPCS: 36415; 71046; 73130; 80053; 81003; 81025; 85025; 85610; 85730; 87637; 93005; 96360; 99283; J7030

== ENCOUNTER 2025-07-18 13:40 | Emergency (ER) | payer OTHER, MEDICAID, SELFPAY ==
[2025-07-18 13:53] VITALS: BP 137/97; PULSE 137; RESP 18; TEMP 36.6; O2SAT 100
[2025-07-18 14:28] VITALS: PULSE 130; O2SAT 99
--- NOTE | 2025-07-18 14:35 | ED_ITS ---
HPI - URI/Sore Throat General Chief Complaint: Upper Respiratory Infection Stated Complaint: SORE THROAT Time Seen by Provider: 07/18/25 14:25 Source: patient Mode of arrival: ambulatory Limitations: no limitations History of Present Illness HPI Narrative: patient is a 40-year-old female who presents with several weeks of sore throat. Patient states symptoms have waxed and waned and she thought it was just halle rgies. States symptoms got the worst they have been the last 2 days. Reports pustules and swelling in her throat and started taking amoxicillin yesterday. Denies any fever, chills, nausea, vomiting, diarrhea. Related Data Home Medications ?Medication ?Instructions ?Recorded ?Confirmed ?Last Taken ?Type albuterol 90 mcg-budesonide 80 inh inhalation 07/18/25 Unknown History mcg/actuation HFA aerosol inhaler (Airsupra) dexmethylphenidate 30 mg mg PO 07/18/25 Unknown Hist ory capsule,extended release [id number] digoxin 250 mcg (0.25 mg) tablet 07/18/25 Unknown Hi story diltiazem HCl 120 mg mg PO 07/18/25 Unknown Hist ory capsule,extended release 24 hr drospirenone (contraceptive) 4 mg 07/18/25 Unknown H istory (28) tablet (Slynd) Allergies Allergy/AdvReac Type Severity Reaction Status Date / Time Sulfa (Sulfonamide Allergy Mild Rash Verified 07/18/25 13:59 Antibiotics) Review of Systems Review of Systems: All systems reviewed & are unremarkable except as noted in HPI and below Constitutional: Constitutional: Denies chills, Denies fatigue, Denies fever(s), Denies headache(s), Denies malaise and Denies weakness Eyes: Eyes: Denies blurry vision, Denies itchy eyes and Denies loss of vision ENT: Denies otalgia, Denies headache(s), Denies nasal congestion, Denies sinus pain and Reports sore throat Cardiovascular: Cardiovascular: Denies chest pain, Denies irregular heart rhythm and Denies dyspnea Respiratory: Respiratory: Denies cough and Denies dyspnea Gastrointestinal: Gastrointestinal: Denies abdominal pain, Denies diarrhea, Denies nausea and Denies vomiting Musculoskeletal: Musculoskeletal: Denies back pain, Denies myalgias and Denies arthralgias Integumentary/Breasts: Skin/Breast: Denies pruritus and Denies rash Neurologic: Denies headache(s), Denies loss of vision and Denies weakness Psychiatric: Psychiatric: Reports no additional psychiatric complaints Endocrine: Endocrine: Denies fatigue Allergic/Immunologic: Allergic/Immunologic: Denies itchy eyes PMFSH Comments At time of signature, agree with nursing past medical, surgical, social and family history. There is no relevant family history pertinent to the presenting complaint. Exam Const: General: cooperative, healthy appearing, comfortable, no acute distress and well nourished Nutritional Appearance: well nourished Orientation/consciousness: patient oriented x3 Limitations: no limitations HENMT: Head: normal to inspection, normocephalic and atraumatic Ears: hearing grossly normal bilaterally, external ears normal, TM's normal bilaterally, EAC's normal and no periauricular adenopathy Face/Nose/Sinus: Normal external nose present, normal facial exam, sinuses nontender and face symmetric Face and sinus: normal facial exam, sinuses nontender and face symmetric Mouth: Yes Normal oral and palatal mucosa present, Yes lip normal, Yes tongue normal, Yes Normal salivary glands and ducts present, Yes oropharynx normal and Yes moist mucous membranes Teeth and gingiva: dentition normal Throat: tonsils normal, uvula midline and posterior oropharynx abnormal erythema Eyes: General: appearance normal, both eyes and all related structures Alignment and Position: alignment normal and position normal Periorbital: periorbital findings normal Eyelids: eyelids normal Pupils: Equal, round and reactive pupils present Neck: Neck: normal visual inspection, full ROM, no lymphadenopathy and supple Chest: Chest palpation & inspection: normal inspection of the chest and normal palpation of entire chest wall Resp: Effort & Inspection: normal respiratory effort and able to speak in complete sentences Auscultation: clear to auscultation bilaterally, no crackles, no rales, no rhonchi and no wheezes Cardio: Rate: tachycardic Rhythm: regular rhythm Heart sounds: S1 normal heart sound present and S2 normal heart sound present GI: Inspection: normal to inspection Skin: General skin exam: normal color and no rashes or lesions noted Neuro: General: patient oriented x3 and moves all extremities Cranial nerves: Yes Equal, round and reactive pupils present Speech: normal speech Gait exam (Neuro): Normal gait present Extrem: General: normal to inspection, full ROM and no edema Psych: Appearance: grossly normal and well kempt Mental Status: mental status grossly normal Speech and movement: Normal speech and movement present Affect: normal affect Attitude: cooperative Thought process: Normal thought process present Course Course Emergency Course: Discharge instructions reviewed with patient, as well as provided in writing per nursing staff. The instructions also include specific and strict return/GO TO THE ER as well as f/u information. All questions have been answered, and the patient deny any further questions with discharge and discharge plan. Portions of this record may have been created with voice recognition software Level of Care: Express Care Visit Vital Signs Vital signs: Vital Signs Temperature 36.6 C 07/18/25 13:53 Pulse Rate 137 H 07/18/25 13:53 Respiratory Rate 18 07/18/25 13:53 Blood Pressure 137/97 H 07/18/25 13:53 Pulse Oximetry 100 07/18/25 13:53 Temperature 36.6 C 07/18/25 13:53 Pulse Rate 130 H 07/18/25 14:28 Respiratory Rate 18 07/18/25 13:53 Blood Pressure 137/97 H 07/18/25 13:53 Pulse Oximetry 99 07/18/25 14:28 Oxygen Delivery Room Air 07/18/25 14:28 Reviewed MDM - URI/Sore Throat MDM Narrative Medical decision making narrative: Patient is tachycardic but reports she has known tachycardia is on digoxin and diltiazem. Will treat with antibiotics based on length of symptoms and possibly altered point of care due to antibiotic use Pt well hydrated appearing, in no respiratory distress, hemodynamically stable. Recommend supportive care. The patient is stable at time of discharge the clinical impression was discussed and the patient was given the opportunity to ask questions, which were addressed as completely as possible given the information available at present. Anticipatory guidance and return to care precautions were discussed and the importance of primary care follow-up was stressed and encouraged. The patient voiced understanding of the plan, indications to return, and the need for follow-up. Exam findings show no acute concerns or changes Patient is appropriate for outpatient treatment and follow-up. Differential diagnosis considered: Galindo virus, strep pharyngitis, allergic rhinitis, upper respiratory tract infection, sinusitis, rhinosinusitis, nasopharyngitis. viral pharyngitis, otitis media, otitis externa, otitis effusion, foreign body, cerumen impaction, viral syndrome, and influenza.? Medical Records Attestation: I reviewed the patient's medical records. Lab Data Attestation: I reviewed the patient's lab results. Labs: Lab Results 07/18/25 Range/Units 14:34 POC Grp A Strep Screen Negative (Negative) Discharge Plan Discharge Clinical Impression: Pharyngitis Qualifiers: Pharyngitis/tonsillitis etiology: unspecified etiology Qualified Code(s): J02.9 - Acute pharyngitis, unspecified Patient Disposition: Home Condition: Stable Instructions: Pharyngitis (ED) Additional Instructions: Your rapid strep swab was negative today at [facility]. A throat culture will be sent to the laboratory for further testing. However, you will be treated with antibiotics. Your symptoms are likely due to a viral illness, which is not treated with antibiotics. Viral symptoms can be present for up to a few weeks. -For pain/fever, you may take: Tylenol 650-1000mg by mouth every 4-6 hours. Do not exceed 4000mg in 24 hours. Advil (Ibuprofen) 600 mg by mouth every 6 hours. Do not exceed 2400mg in 24 hours. 8 AM: Tylenol 11 AM: Ibuprofen 2 PM: Tylenol 5 PM: Ibuprofen 8 PM: Tylenol 11 PM: Ibuprofen 2 AM: Tylenol 5 AM: Ibuprofen -Antihistamine medication such as Benadryl/Zyrtec at night and Claritin/Angle during the day can help improve symptoms. -Use Flonase twice a day for 5 days then daily to help reduce the inflammation and dry up your sinuses. -You can also use Sudafed behind the pharmacy counter(12 or 24 hour). Be sure to drink plenty of water with these medications at least 8 ounces with every dose and it is important to drink 8 to 10 glasses of water per day. Water is a natural decongestant -Eat and drink things that are easy to swallow, like tea or soup, or popsicles. -Oral rinses such as: Salt water gargles and/or may use topical anesthetic (eg. Chloraseptic spray) or lozenges to relieve dryness or throat pain). -Frequent hand washing or hand bathing suit maker is one of the best ways to prevent spread of infection. -Using a vaporizer or humidifier at night will also help thin secretions and help with coughing up phlegm. Call your Primary Care Doctor and make a follow-up appointment in 3 days. If your cough worsens, you develop a fever greater than 103, you develop shaking chills, a fast heartbeat, trouble breathing and/or feel you are are breathing much faster than usual, call your Primary Care Doctor or go to the ER. Patient Language: Portuguese Prescriptions: New amoxicillin 500 mg capsule 500 mg PO BID 10 Days Qty: 20 0RF No Action digoxin 250 mcg (0.25 mg) tablet diltiazem HCl 120 mg capsule,extended release 24hr PO dexmethylphenidate 30 mg capsule,ER biphasic 50-50 PO Slynd 4 mg (28) tablet Airsupra 90-80 mcg/actuation HFA aerosol inhaler INHALATION promethazine 25 mg tablet 25 mg PO Q6H PRN (Reason: nausea and vomiting) Qty: 10 0RF prednisone 20 mg tablet 40 mg PO DAILY 5 Days Qty: 10 0RF Follow-up/Referrals: Gurvinder,Laura Chao MD [Primary Care Provider, Unknown] - 3 Days Stand Alone Forms: Work/School Release IP Time of Disposition: 14:41
[2025-07-18 14:40] LABS: EDSTREPNEGPOS1 Negative (Negative)
== END 2025-07-18 14:44 | disposition home or self-care (01) ==
PROVIDERS: Emergency Provider Nurse Practitioner Family; PCP Family Medicine
DX: J02.9 Acute pharyngitis, unspecified (principal); Z79.899 Other long term (current) drug therapy
CPT/HCPCS: 87081; 87880; 99213; G0463

== ENCOUNTER 2025-07-24 18:46 | Emergency (ER) | payer OTHER, MEDICAID, SELFPAY ==
[2025-07-24 18:53] VITALS: BP 148/82; PULSE 95; RESP 16; TEMP 36.4; O2SAT 100
--- NOTE | 2025-07-24 18:59 | ED_ITS ---
HPI - URI/Sore Throat General Chief Complaint: Upper Respiratory Infection Stated Complaint: SORE THROAT/TONGUE FEELS RAW/WHITE SPOTS Time Seen by Provider: 07/24/25 18:59 Source: patient Mode of arrival: ambulatory Limitations: no limitations History of Present Illness HPI Narrative: 40-year-old female presents with complaint of soreness to tongue at throat, dry mouth. Reports that she saw white patches on tongue. Patient uses Advair. Reports she has had thrush in the past. Patient states that symptoms have been off and on for the past 2 weeks. Was seen last week and had negative strep test. All systems reviewed and negative except as noted above. Related Data Home Medications ?Medication ?Instructions ?Recorded ?Confirmed ?Last Taken ?Type albuterol 90 mcg-budesonide 80 inh inhalation 07/18/25 Unknown History mcg/actuation HFA aerosol inhaler (Airsupra) dexmethylphenidate 30 mg mg PO 07/18/25 Unknown Hist ory capsule,extended release [id number] digoxin 250 mcg (0.25 mg) tablet 07/18/25 Unknown Hi story diltiazem HCl 120 mg mg PO 07/18/25 Unknown Hist ory capsule,extended release 24 hr drospirenone (contraceptive) 4 mg 07/18/25 Unknown H istory (28) tablet (Slynd) Allergies Allergy/AdvReac Type Severity Reaction Status Date / Time Sulfa (Sulfonamide Allergy Mild Rash Verified 07/24/25 19:00 Antibiotics) PMFSH Comments At time of signature, agree with nursing past medical, surgical, social and family history. There is no relevant family history pertinent to the presenting complaint. Exam Narrative: GENERAL: This is a well-nourished, well-developed patient, in no apparent distress. HEAD: normocephalic, atraumatic. EYES: PERRL. Sclera clear/white. Vision is grossly intact. EARS: External ears normal NOSE: External nose normal THROAT: Mucous membranes moist, erythema to posterior pharynx and tongue. No significant swelling or exudates. Mild plaques to tongue NECK: Neck supple, non-tender without lymphadenopathy, masses or thyromegaly. CARDIOVASCULAR: Regular rate and rhythm without murmurs, gallops, or rubs. RESPIRATORY: Clear to auscultation. Breath sounds equal bilaterally. No wheezes, rales, or rhonchi. SKIN: warm, Dry, intact with no suspicious lesions or rash, good texture and turgor. NEURO: awake, alert, and oriented to person, place and time. There were no obvious focal neurologic abnormalities. EXTREMITIES: No joint tenderness, effusion, or edema noted. Course Course Level of Care: Express Care Visit Vital Signs Vital signs: Vital Signs Temperature 36.4 C L 07/24/25 18:53 Pulse Rate 95 07/24/25 18:53 Respiratory Rate 16 07/24/25 18:53 Blood Pressure 148/82 H 07/24/25 18:53 Pulse Oximetry 100 07/24/25 18:53 Temperature 36.4 C L 07/24/25 18:53 Pulse Rate 95 07/24/25 18:53 Respiratory Rate 16 07/24/25 18:53 Blood Pressure 148/82 H 07/24/25 18:53 Pulse Oximetry 100 07/24/25 18:53 MDM - URI/Sore Throat MDM Narrative Medical decision making narrative: will treat for thrush with nystation. pt agrees with plan of care. pt is well appearing, nontoxic. Discharge Plan Discharge Clinical Impression: Oral thrush Patient Disposition: Home Condition: Stable Instructions: Oral Candidiasis (ED) Additional Instructions: Take medications as prescribed. Change toothbrush. Patient Language: Ukrainian Prescriptions: New nystatin 100,000 unit/mL suspension 6 ml PO QID 10 Days Qty: 240 0RF Rx Instructions: swish and swallow No Action digoxin 250 mcg (0.25 mg) tablet diltiazem HCl 120 mg capsule,extended release 24hr PO dexmethylphenidate 30 mg capsule,ER biphasic 50-50 PO Slynd 4 mg (28) tablet Airsupra 90-80 mcg/actuation HFA aerosol inhaler INHALATION amoxicillin 500 mg capsule 500 mg PO BID 10 Days Qty: 20 0RF promethazine 25 mg tablet 25 mg PO Q6H PRN (Reason: nausea and vomiting) Qty: 10 0RF Follow-up/Referrals: Gurvinder,Laura Chao MD [Primary Care Provider, Unknown] Time of Disposition: 19:03
== END 2025-07-24 19:10 | disposition home or self-care (01) ==
PROVIDERS: Emergency Provider Nurse Practitioner Family; PCP Family Medicine
DX: B37.0 Candidal stomatitis (principal); J45.909 Unspecified asthma, uncomplicated; F90.9 Attention-deficit hyperactivity disorder, unspecified type
CPT/HCPCS: 99213; G0463